=== PATIENT | male | born 1950 | race Caucasian/White ===

== ENCOUNTER 2020-07-25 13:15 | Inpatient (IN) | payer OTHER, MEDICARE ==
[~2020-07-25] VITALS: Ht 165.1 cm; Wt 79.4 kg
[2020-07-25 13:21] VITALS: BP_SYST 117
[2020-07-25 14:38] LABS: MEAN CORPUSCULAR HGB CONC 32 % (32-36); MEAN CORPUSCULAR VOLUME 65 fL (79.0-98.0); PLATELET COUNT (AUTO) 431 K/uL (130-430)
[2020-07-25 14:50] LABS: BASOPHILS # (AUTO) 0.1 K/uL (0.0-0.2); EOSINOPHILS # (AUTO) 0.4 K/uL (0.0-0.4); EOSINOPHILS % (AUTO) 4.2 % (0.0-4.0); HEMATOCRIT 39.6 % (36-54); HEMOGLOBIN 12.8 g/dL (14.0-18.0); LYMPHOCYTES # (AUTO) 1.6 K/uL (1.0-5.5); MEAN CORPUSCULAR HEMOGLOBIN 21 pg (27-31); MONOCYTES % (AUTO) 9.8 % (1.7-9.3); RED BLOOD CELL COUNT(AUTO) 6.09 MIL/uL (4.2-6.2); RED CELL DISTRIBUTION WIDTH 16.3 % (9.0-15.0); WHITE BLOOD COUNT (AUTO) 10.1 K/uL (4.8-10.8)
[2020-07-25 14:52] LABS: ANION GAP 9 (5-15); CHLORIDE 100 mmol/L (98-107); CREATININE 0.87 mg/dL (0.55-1.30); GLUCOSE 137 mg/dL (70-99); SODIUM SERUM 135 mmol/L (136-145); UREA NITROGEN, BLOOD 15 mg/dL (8-21)
[2020-07-25 14:56] LABS: PROTHROMBIN TIME 10.2 SECS (9.5-12.5)
[2020-07-25 14:58] LABS: ALANINE AMINOTRANSFERASE 16 U/L (12-78); ALBUMIN 3.3 g/dL (3.4-4.8); ASPARTATE AMINOTRANSFERASE 13 U/L (10-37); TOTAL BILIRUBIN 0.4 mg/dL (0.0-1.0)
[2020-07-25] MEDS ORDERED: *LOVENOX 1MG/KG Q12H/PHARMACY XX ONE (16:30)
[2020-07-25] MEDS ORDERED: METF-518 PO (16:50)
[2020-07-25] MEDS ORDERED: CAPT25TA3 PO (16:50)
[2020-07-25] MEDS ORDERED: CILO100T PO (16:50)
[2020-07-25] MEDS ORDERED: ALLO100T PO (16:50)
[2020-07-25] MEDS ORDERED: PRAV40TA PO (16:50)
[2020-07-25] MEDS ORDERED: BACL10TA PO (16:50)
[2020-07-25] MEDS ORDERED: NAPR-690 PO (16:50)
[2020-07-25] MEDS ORDERED: DESL5TAB41 PO (16:50)
[2020-07-25] MEDS ORDERED: ENOXAPARIN SODIUM 80 MG/0.8 ML SYRINGE SUBCUT ONE (17:00)
[2020-07-25] MEDS ORDERED: INSULIN REGULAR, HUMAN 100 UNITS/ML, 10 ML VIAL (humuLIN R) SUBCUT PRN (17:45)
[2020-07-25 18:20] VITALS: BP_SYST 160
[2020-07-25 19:00] VITALS: BP_SYST 165
[2020-07-25 20:00] VITALS: BP_SYST 165
[2020-07-25] MEDS ORDERED: TEMAZEPAM 7.5 MG CAPSULE PO PRN (22:00)
[2020-07-25] MEDS: traMADol HCL HCL 50 MG TABLET (ULTRAM) PO PRN (22:28)
[2020-07-26 00:09] VITALS: BP_SYST 156
[2020-07-26] MEDS: traMADol HCL HCL 50 MG TABLET (ULTRAM) PO PRN (07:51)
[2020-07-26 08:00] VITALS: BP_SYST 137
[2020-07-26 08:24] LABS: ANION GAP 11 (5-15); CALCIUM 8.6 mg/dL (8.4-11.0); CHLORIDE 100 mmol/L (98-107); CREATININE 0.72 mg/dL (0.55-1.30); GLUCOSE 103 mg/dL (70-99); POTASSIUM 3.7 mmol/L (3.5-5.1); SODIUM SERUM 137 mmol/L (136-145); UREA NITROGEN, BLOOD 13 mg/dL (8-21)
[2020-07-26 08:28] LABS: PROTHROMBIN TIME 10.2 SECS (9.5-12.5)
[2020-07-26 08:31] LABS: BASOPHILS # (AUTO) 0.1 K/uL (0.0-0.2); BASOPHILS % (AUTO) 1.3 % (0.0-2.0); EOSINOPHILS # (AUTO) 0.5 K/uL (0.0-0.4); EOSINOPHILS % (AUTO) 4.6 % (0.0-4.0); HEMATOCRIT 42.3 % (36-54); HEMOGLOBIN 13.3 g/dL (14.0-18.0); LYMPHOCYTES # (AUTO) 2.1 K/uL (1.0-5.5); LYMPHOCYTES % (AUTO) 18.8 % (20.5-51.5); MEAN CORPUSCULAR HEMOGLOBIN 21 pg (27-31); MEAN CORPUSCULAR HGB CONC 31 % (32-36); MEAN CORPUSCULAR VOLUME 65 fL (79.0-98.0); MONOCYTES % (AUTO) 8.5 % (1.7-9.3); NEUTROPHILS # (AUTO) 7.5 K/uL (1.8-7.7); NEUTROPHILS % (AUTO) 66.8 % (40.0-70.0); PLATELET COUNT (AUTO) 429 K/uL (130-430); RED BLOOD CELL COUNT(AUTO) 6.48 MIL/uL (4.2-6.2); RED CELL DISTRIBUTION WIDTH 16.2 % (9.0-15.0); WHITE BLOOD COUNT (AUTO) 11.3 K/uL (4.8-10.8)
[2020-07-26 08:41] LABS: ALANINE AMINOTRANSFERASE 22 U/L (12-78); ALBUMIN 3.2 g/dL (3.4-4.8); ASPARTATE AMINOTRANSFERASE 16 U/L (10-37); THYROID STIMULATING HORMONE 5.89 uIu/mL (0.36-3.74); TOTAL BILIRUBIN 0.5 mg/dL (0.0-1.0)
[2020-07-26] MEDS: ENOXAPARIN SODIUM 80 MG/0.8 ML SYRINGE SUBCUT SCH ×2 (08:50→20:17)
[2020-07-26] MEDS ORDERED: ENOXAPARIN SODIUM 80 MG/0.8 ML SYRINGE SUBCUT SCH (09:00)
[2020-07-26 09:45] LABS: CHOLESTEROL 107 mg/dL (<200); HDL CHOLESTEROL 52 mg/dL (>45); LDL CHOLESTEROL 47 mg/dL (<100); TRIGLYCERIDES 102 mg/dL (30-150)
[2020-07-26 11:50] VITALS: BP_SYST 145
[2020-07-26] MEDS ORDERED: BACLOFEN 10 MG TABLET PO ONE (15:15)
[2020-07-26] MEDS ORDERED: ALLOPURINOL 100 MG TABLET (ZYLOPRIM) PO ONE (15:15)
[2020-07-26] MEDS ORDERED: LORATADINE 10 MG TABLET PO ONE (15:15)
[2020-07-26] MEDS ORDERED: lisinopriL 5 MG TABLET PO ONE (15:15)
[2020-07-26] MEDS ORDERED: ATORVASTATIN 10 MG TABLET PO ONE (15:30)
[2020-07-26 16:55] VITALS: BP_SYST 145
[2020-07-26 20:00] VITALS: BP_SYST 142
[2020-07-26] MEDS: BACLOFEN 10 MG TABLET PO SCH (20:15)
[2020-07-26] MEDS: NAPROXEN 250 MG TABLET PO SCH (20:15)
[2020-07-26] MEDS: lisinopriL 5 MG TABLET PO SCH (20:16)
[2020-07-26] MEDS: CILOSTAZOL 50 MG TABLET (PLETAL) PO SCH (20:17)
[2020-07-26] MEDS: cefTRIAXone 1 GM in D5W 50 ML IV SCH (20:18)
[2020-07-26] MEDS: MORPHINE 2 MG/ML INJ. SYRINGE IVP PRN (21:18)
[2020-07-27] VITALS: BP_SYST 134
[2020-07-27 08:00] VITALS: BP_SYST 151
[2020-07-27] MEDS: LORATADINE 10 MG TABLET PO SCH (08:41)
[2020-07-27] MEDS: CILOSTAZOL 50 MG TABLET (PLETAL) PO SCH ×2 (08:41→20:08)
[2020-07-27] MEDS: lisinopriL 5 MG TABLET PO SCH ×2 (08:41→20:07)
[2020-07-27] MEDS: ATORVASTATIN 10 MG TABLET PO SCH (08:42)
[2020-07-27] MEDS: ALLOPURINOL 100 MG TABLET (ZYLOPRIM) PO SCH (08:42)
[2020-07-27] MEDS: BACLOFEN 10 MG TABLET PO SCH ×3 (08:42→20:07)
[2020-07-27] MEDS: ENOXAPARIN SODIUM 80 MG/0.8 ML SYRINGE SUBCUT SCH ×2 (08:43→20:09)
[2020-07-27] MEDS ORDERED: metFORMIN HCL 500 MG TABLET PO ONE (08:45)
[2020-07-27] MEDS: NAPROXEN 250 MG TABLET PO SCH ×2 (10:25→20:07)
[2020-07-27 12:00] VITALS: BP_SYST 145
[2020-07-27] MEDS: MORPHINE 2 MG/ML INJ. SYRINGE IVP PRN (16:23)
[2020-07-27 16:47] VITALS: BP_SYST 113
[2020-07-27] MEDS: metFORMIN HCL 500 MG TABLET PO SCH (18:10)
[2020-07-27 19:54] VITALS: BP_SYST 131
[2020-07-27] MEDS: cefTRIAXone 1 GM in D5W 50 ML IV SCH (20:13)
[2020-07-27 23:39] VITALS: BP_SYST 139
[2020-07-28] MEDS: metFORMIN HCL 500 MG TABLET PO SCH ×2 (09:45→17:34)
[2020-07-28] MEDS: ATORVASTATIN 10 MG TABLET PO SCH (09:45)
[2020-07-28] MEDS: LORATADINE 10 MG TABLET PO SCH (09:45)
[2020-07-28] MEDS: NAPROXEN 250 MG TABLET PO SCH ×2 (09:45→21:23)
[2020-07-28] MEDS: CILOSTAZOL 50 MG TABLET (PLETAL) PO SCH ×2 (09:45→21:22)
[2020-07-28] MEDS: lisinopriL 5 MG TABLET PO SCH ×2 (09:46→21:23)
[2020-07-28] MEDS: BACLOFEN 10 MG TABLET PO SCH ×3 (09:46→21:23)
[2020-07-28] MEDS: ALLOPURINOL 100 MG TABLET (ZYLOPRIM) PO SCH (09:47)
[2020-07-28] MEDS: ENOXAPARIN SODIUM 80 MG/0.8 ML SYRINGE SUBCUT SCH ×2 (09:51→21:27)
[2020-07-28 09:54] VITALS: BP_SYST 129
[2020-07-28 12:55] VITALS: BP_SYST 140
[2020-07-28 16:00] VITALS: BP_SYST 145
[2020-07-28 20:00] VITALS: BP_SYST 140
[2020-07-28] MEDS: cefTRIAXone 1 GM in D5W 50 ML IV SCH (21:22)
[2020-07-29 01:22] VITALS: BP_SYST 150
[2020-07-29 08:00] VITALS: BP_SYST 146
[2020-07-29] MEDS: metFORMIN HCL 500 MG TABLET PO SCH ×2 (09:04→17:10)
[2020-07-29] MEDS: NAPROXEN 250 MG TABLET PO SCH ×2 (09:04→22:01)
[2020-07-29] MEDS: BACLOFEN 10 MG TABLET PO SCH ×3 (09:04→22:02)
[2020-07-29] MEDS: LORATADINE 10 MG TABLET PO SCH (09:05)
[2020-07-29] MEDS: ALLOPURINOL 100 MG TABLET (ZYLOPRIM) PO SCH (09:05)
[2020-07-29] MEDS: lisinopriL 5 MG TABLET PO SCH ×2 (09:05→22:02)
[2020-07-29] MEDS: ATORVASTATIN 10 MG TABLET PO SCH (09:05)
[2020-07-29] MEDS: CILOSTAZOL 50 MG TABLET (PLETAL) PO SCH ×2 (09:06→22:02)
[2020-07-29] MEDS: ENOXAPARIN SODIUM 80 MG/0.8 ML SYRINGE SUBCUT SCH (09:07)
[2020-07-29] MEDS ORDERED: DIATR MEGLU/DIATRIZ SOD 30 ML SOLUTION PO ONE (10:22)
[2020-07-29] MEDS ORDERED: APIXABAN 2.5 MG TABLET PO ONE (10:30)
[2020-07-29 12:17] VITALS: BP_SYST 112
[2020-07-29 16:15] VITALS: BP_SYST 130
[2020-07-29 20:00] VITALS: BP_SYST 132
[2020-07-29] MEDS: APIXABAN 2.5 MG TABLET PO SCH (21:00)
[2020-07-29] MEDS: cefTRIAXone 1 GM in D5W 50 ML IV SCH (22:00)
[2020-07-30 00:27] VITALS: BP_SYST 142
[2020-07-30 06:38] LABS: BASOPHILS # (AUTO) 0.1 K/uL (0.0-0.2); BASOPHILS % (AUTO) 1.1 % (0.0-2.0); EOSINOPHILS # (AUTO) 0.5 K/uL (0.0-0.4); EOSINOPHILS % (AUTO) 4.8 % (0.0-4.0); HEMATOCRIT 41.8 % (36-54); HEMOGLOBIN 13.2 g/dL (14.0-18.0); LYMPHOCYTES % (AUTO) 19.7 % (20.5-51.5); MEAN CORPUSCULAR HEMOGLOBIN 21 pg (27-31); MEAN CORPUSCULAR HGB CONC 32 % (32-36); MEAN CORPUSCULAR VOLUME 65 fL (79.0-98.0); MONOCYTES # (AUTO) 0.9 K/uL (0.0-1.0); MONOCYTES % (AUTO) 8.7 % (1.7-9.3); NEUTROPHILS # (AUTO) 6.6 K/uL (1.8-7.7); NEUTROPHILS % (AUTO) 65.7 % (40.0-70.0); PLATELET COUNT (AUTO) 423 K/uL (130-430); RED BLOOD CELL COUNT(AUTO) 6.44 MIL/uL (4.2-6.2); WHITE BLOOD COUNT (AUTO) 10.1 K/uL (4.8-10.8)
[2020-07-30 07:27] LABS: ANION GAP 11 (5-15); CALCIUM 8.9 mg/dL (8.4-11.0); CHLORIDE 100 mmol/L (98-107); CREATININE 0.69 mg/dL (0.55-1.30); GLUCOSE 122 mg/dL (70-99); POTASSIUM 4.2 mmol/L (3.5-5.1); SODIUM SERUM 136 mmol/L (136-145); UREA NITROGEN, BLOOD 13 mg/dL (8-21)
[2020-07-30 08:00] VITALS: BP_SYST 149
[2020-07-30] MEDS: metFORMIN HCL 500 MG TABLET PO SCH ×2 (08:00→17:48)
[2020-07-30] MEDS: BACLOFEN 10 MG TABLET PO SCH ×2 (09:20→15:44)
[2020-07-30] MEDS: LORATADINE 10 MG TABLET PO SCH (09:20)
[2020-07-30] MEDS: ATORVASTATIN 10 MG TABLET PO SCH (09:20)
[2020-07-30] MEDS: ALLOPURINOL 100 MG TABLET (ZYLOPRIM) PO SCH (09:20)
[2020-07-30] MEDS: lisinopriL 5 MG TABLET PO SCH (09:21)
[2020-07-30] MEDS: NAPROXEN 250 MG TABLET PO SCH (09:23)
[2020-07-30] MEDS: CILOSTAZOL 50 MG TABLET (PLETAL) PO SCH (09:25)
[2020-07-30] MEDS: APIXABAN 2.5 MG TABLET PO SCH (09:26)
[2020-07-30 12:00] VITALS: BP_SYST 140
[2020-07-30] MEDS ORDERED: APIX2.5T PO (15:46)
[2020-07-30] MEDS ORDERED: APIX5TAB4 PO (15:49)
[2020-07-30 16:13] VITALS: BP_SYST 134
[2020-07-30 19:46] VITALS: BP_SYST 134
[2020-07-30 19:48] VITALS: BP_SYST 134
== END 2020-07-30 20:39 | disposition home health service (06) | DRG 300 ==
LOC: SED 13:15 → STU 17:04
PROVIDERS: ADMIT Internal Medicine; ATTEND Internal Medicine
DX: I82.A12 Acute embolism and thrombosis of left axillary vein (principal); L03.114 Cellulitis of left upper limb; I82.612 Acute embolism and thrombosis of superficial veins of left upper extremity; M17.11 Unilateral primary osteoarthritis, right knee; I10 Essential (primary) hypertension; E11.9 Type 2 diabetes mellitus without complications; Z79.899 Other long term (current) drug therapy; Z82.49 Family history of ischemic heart disease and other diseases of the circulatory system; Z83.3 Family history of diabetes mellitus; Z20.822 Contact with and (suspected) exposure to COVID-19
CPT/HCPCS: 36415; 71045; 71260-TC; 73564; 76376; 80048; 80053; 80061; 81403; 81407; 81479; 82962; 83880; 84443-TC; 84484; 85025; 85300; 85306; 85610-TC; 85730-TC; 86147; 87081; 93005; 93923; 93970; 96372; 97116-GP; 97530-GP; G0378; J0696; J1650; J1815; J2270; J7060; Q9964; Q9967

== ENCOUNTER 2021-06-10 09:44 | Inpatient (IN) | payer OTHER, MEDICARE, SELFPAY ==
[2021-06-10] VITALS (19 sets, daily range): BP systolic 41–160
[~2021-06-10] VITALS: Ht 165.1 cm; Wt 64.6 kg
[~2021-06-10 09:44] MED LIST: ALLO100T PO; APIX2.5T PO; BACL10TA PO; CAPT25TA3 PO; CILO100T PO; DESL5TAB41 PO; METF-518 PO; NAPR-690 PO; PRAV40TA PO
--- NOTE | 2021-06-10 09:44 | NUR ---
Pt triaged and placed in room 2 for evaluation. Report given to Oahn JC to assume care of patient.
[2021-06-10] MEDS ORDERED: ETOMIDATE 20 MG/ 10 ML VIAL (AMIDATE) IVP ONE ×2 (09:45→10:15)
[2021-06-10] MEDS ORDERED: VECURONIUM BROMIDE 10 MG/VIAL (NORCURON) IVP ONE ×2 (09:45→10:15)
--- NOTE | 2021-06-10 09:45 | NUR ---
Pt BIBA re SOB, 50's saturation on room air at home. Pt was seen at [facility] yesterday and newly diagnosed with CHF. Arrived on Bipap mask with sats only in 60's. NTG in field was minimally effective. Pt awake, alert and oriented x 3. Able to speak in short sentences. Awaiting MD lópez. Addendum: 06/10/21 at 1006 by [email or web address] *RT called to bedside immediately upon pt arrival re probable intubation
--- NOTE | 2021-06-10 09:50 | NUR ---
DR NEGRETE EXAMINING PATIENT.
[2021-06-10] MEDS ORDERED: fentaNYL CITRATE/PF 100 MCG/2 ML AMP IVP ONE (10:15)
[2021-06-10] MEDS ORDERED: PROPOFOL DRIP 100 ML IV ONE ×2 (10:15→12:26)
[2021-06-10 10:27] LABS: BASOPHILS # (AUTO) 0.1 K/uL (0.0-0.2); BASOPHILS % (AUTO) 0.7 % (0.0-2.0); EOSINOPHILS # (AUTO) 0.1 K/uL (0.0-0.4); EOSINOPHILS % (AUTO) 0.5 % (0.0-4.0); HEMOGLOBIN 11.2 g/dL (14.0-18.0); LYMPHOCYTES # (AUTO) 2.6 K/uL (1.0-5.5); MEAN CORPUSCULAR HEMOGLOBIN 21 pg (27-31); MEAN CORPUSCULAR HGB CONC 31 % (32-36); MEAN CORPUSCULAR VOLUME 68 fL (79.0-98.0); MONOCYTES # (AUTO) 0.4 K/uL (0.0-1.0); MONOCYTES % (AUTO) 2.1 % (1.7-9.3); NEUTROPHILS % (AUTO) 81.7 % (40.0-70.0); PLATELET COUNT (AUTO) 450 K/uL (130-430); RED BLOOD CELL COUNT(AUTO) 5.32 MIL/uL (4.2-6.2); RED CELL DISTRIBUTION WIDTH 21.1 % (9.0-15.0); WHITE BLOOD COUNT (AUTO) 17.1 K/uL (4.8-10.8)
--- NOTE | 2021-06-10 10:30 | NUR ---
DR NEGRETE INTUBATED PT USING ET TUBE SIZE 7.5, R.T. AT BEDSIDE BAGGING PT, WHILE VENT MACHINE BEING SET UP.
--- NOTE | 2021-06-10 10:40 | NUR ---
RIGHT JUGULAR CENTRAL LINE INSERTED BY DR NEGRETE. BIOPATCH TO SITE IN PLACED, TRANSPARENT DRESSING TO COVER.
[2021-06-10 10:50] LABS: ANION GAP 14 (5-15); CALCIUM 9.4 mg/dL (8.4-11.0); CHLORIDE 94 mmol/L (98-107); CREATININE 1.04 mg/dL (0.55-1.30); GLUCOSE 169 mg/dL (70-99); POTASSIUM 5.1 mmol/L (3.5-5.1); PROTHROMBIN TIME 10.8 SECS (9.5-12.5); SODIUM SERUM 128 mmol/L (136-145); UREA NITROGEN, BLOOD 24 mg/dL (8-21)
[2021-06-10 10:59] LABS: ALANINE AMINOTRANSFERASE 23 U/L (12-78); ALBUMIN 2.2 g/dL (3.4-4.8); ASPARTATE AMINOTRANSFERASE 29 U/L (10-37); TOTAL BILIRUBIN 0.6 mg/dL (0.0-1.0)
--- NOTE | 2021-06-10 11:15 | NUR ---
CHEST XRAY ORDERED AND CARRIED OUT.
[2021-06-10] MEDS ORDERED: PIPERACILLIN/TAZO 3.375 GM in NS 50 ML IV ONE (11:45)
[2021-06-10] MEDS ORDERED: VANCOMYCIN HCL 1,000 MG in NS 250 ML IV ONE (11:45)
[2021-06-10] MEDS ORDERED: PIPERACILLIN/TAZOBACTAM 3.375 GM/VIAL (ZOSYN) IV ONE (12:08)
--- NOTE | 2021-06-10 12:28 | NUR ---
CONSULT CALLED FOR DR CHANCE AND DR OROSCO SPOKE WITH ACE [phone]
[2021-06-10] MEDS ORDERED: IPRATROPIUM/ALBUTEROL SULFATE 3 ML AMPUL.NEB (DUONEB) INH PRN (13:15)
[2021-06-10] MEDS ORDERED: IPRATROPIUM/ALBUTEROL SULFATE 3 ML AMPUL.NEB (DUONEB) INH SCH (13:15)
--- NOTE | 2021-06-10 13:50 | NUR ---
Patient transported to ICU rm 127B on hospital bed with RT and WEB PAGE DEVELOPER Pam. Hugo (primary RN) to take chart to unit.
--- NOTE | 2021-06-10 13:58 | NUR ---
Transferred care to BABITA Prince. Moved pt to ICU rm 127-B.
[2021-06-10] MEDS ORDERED: NOREPINEPHRINE 4 MG/4 ML VIAL IV ONE (14:57)
[2021-06-10] MEDS ORDERED: NOREPINEPHRINE BITARTRATE 4 MG in D5W 246 ML IV PRN (15:00)
[2021-06-10] MEDS ORDERED: PANTOPRAZOLE SODIUM 40 MG/VIAL (PROTONIX) IVP ONE (16:00)
[2021-06-10] MEDS ORDERED: ENOXAPARIN SODIUM 40 MG/0.4 ML SYRINGE SUBCUT ONE (16:00)
[2021-06-10] MEDS ORDERED: FUROSEMIDE 40 MG/4 ML VIAL IVP ONE (16:00)
[2021-06-10] MEDS ORDERED: CHOLECALCIFEROL (VITAMIN D-3) 400 UNIT TABLET NG ONE (16:00)
[2021-06-10] MEDS ORDERED: ASCORBIC ACID 500 MG TABLET NG ONE (16:00)
[2021-06-10] MEDS ORDERED: NACL 0.9% 1,000 ML IV SCH (18:15)
[2021-06-10] MEDS: PIPERACILLIN/TAZO 3.375 GM in NS 50 ML IV SCH (18:24)
[2021-06-10] MEDS: METHYLPREDNISOLONE SOD SUCC 40 MG/ML VIAL IVP SCH ×2 (18:26→22:00)
[2021-06-10] MEDS: NACL 0.9% 1,000 ML IV SCH (19:00)
[2021-06-10] MEDS ORDERED: GUAI120L56 PO (19:20)
[2021-06-10] MEDS ORDERED: CARV12.548 PO (19:29)
[2021-06-10] MEDS ORDERED: PRED5TAB PO (19:58)
[2021-06-10] MEDS ORDERED: FOLI-43 PO (19:58)
[2021-06-10] MEDS ORDERED: FER300L PO (19:58)
[2021-06-10] MEDS ORDERED: XALEYE OP (19:58)
[2021-06-10] MEDS ORDERED: PRAV40TA63 PO (19:58)
[2021-06-10] MEDS ORDERED: DORZ10DR10 EACH EYE (19:58)
[2021-06-10] MEDS ORDERED: ASPI-1155 PO (19:58)
[2021-06-10] MEDS ORDERED: APIX5TAB4 PO (19:58)
[2021-06-10] MEDS ORDERED: FURO-150 PO (19:58)
[2021-06-10] MEDS ORDERED: SPIR25TA6 PO (19:58)
[2021-06-10] MEDS ORDERED: SACU1TAB7 PO (19:58)
[2021-06-10] MEDS ORDERED: DAPA10TA PO (19:58)
[2021-06-10] MEDS ORDERED: FAMO20TA8 PO (19:58)
[2021-06-10] MEDS: ALBUMIN HUMAN 25% 100 ML IV SCH (21:45)
--- NOTE | 2021-06-10 22:06 | NUR ---
CONSULTATION PAGED/CALLED Reason for Consultation: COVID Person Who was Notified: GENI Consulting Physician: JENNIFER Music Professor Specialty: Ordering Physician: CELESTE
[2021-06-11] VITALS (36 sets, daily range): BP systolic 68–166
[2021-06-11] MEDS: ALBUMIN HUMAN 25% 100 ML IV SCH (01:45)
[2021-06-11] MEDS: PIPERACILLIN/TAZO 3.375 GM in NS 50 ML IV SCH ×5 (04:59→18:01)
[2021-06-11] MEDS: METHYLPREDNISOLONE SOD SUCC 40 MG/ML VIAL IVP SCH ×3 (05:00→21:00)
--- NOTE | 2021-06-11 07:30 | NUR ---
Recd pt sedated on diprivan gtt at 25mcg/kg/min, oral ETT to vent SC 20, tv 450, 75% fio2, +5, with sats 97%. SR at 61. OGT clamped for meds, F/c with yellow clear urine. AM assessment done and charted. Attempted to wean off levophed because BP was 166/82, down to 0.2mcg/kg/min, now BP 114/66. Will continue to monitor pt.
[2021-06-11 08:06] LABS: BASOPHILS % (AUTO) 0.2 % (0.0-2.0); HEMATOCRIT 31.3 % (36-54); HEMOGLOBIN 9.8 g/dL (14.0-18.0); LYMPHOCYTES # (AUTO) 1.8 K/uL (1.0-5.5); LYMPHOCYTES % (AUTO) 10.7 % (20.5-51.5); MEAN CORPUSCULAR HEMOGLOBIN 21 pg (27-31); MEAN CORPUSCULAR HGB CONC 31 % (32-36); MEAN CORPUSCULAR VOLUME 68 fL (79.0-98.0); MONOCYTES # (AUTO) 0.6 K/uL (0.0-1.0); MONOCYTES % (AUTO) 3.7 % (1.7-9.3); NEUTROPHILS # (AUTO) 14.3 K/uL (1.8-7.7); NEUTROPHILS % (AUTO) 85.4 % (40.0-70.0); PLATELET COUNT (AUTO) 387 K/uL (130-430); RED BLOOD CELL COUNT(AUTO) 4.64 MIL/uL (4.2-6.2); RED CELL DISTRIBUTION WIDTH 20.5 % (9.0-15.0); WHITE BLOOD COUNT (AUTO) 16.8 K/uL (4.8-10.8)
--- NOTE | 2021-06-11 08:23 | NUR ---
Nutrition Update Brayan Scale 9 noted. Pt admitted for CHF, influenza, COVID. Diet: N/A BMI: 23.5 kg/m2 RD to follow per nutrition care standards.
[2021-06-11] MEDS ORDERED: CHOLECALCIFEROL (VITAMIN D-3) 400 UNIT TABLET NG SCH (09:00)
[2021-06-11] MEDS ORDERED: ASCORBIC ACID 500 MG TABLET NG SCH (09:00)
[2021-06-11] MEDS: FUROSEMIDE 40 MG/4 ML VIAL IVP SCH (09:21)
[2021-06-11] MEDS: NACL 0.9% 1,000 ML IV SCH ×2 (09:21→21:00)
[2021-06-11] MEDS: PANTOPRAZOLE SODIUM 40 MG/VIAL (PROTONIX) IVP SCH (09:21)
[2021-06-11] MEDS: ASCORBIC ACID 500 MG TABLET PO SCH (09:22)
[2021-06-11] MEDS: CHOLECALCIFEROL (VITAMIN D3) 2,000 UNIT TABLET PO SCH (09:22)
[2021-06-11] MEDS: ENOXAPARIN SODIUM 40 MG/0.4 ML SYRINGE SUBCUT SCH (09:23)
--- NOTE | 2021-06-11 09:34 | NUR ---
Notified Dr Lemus regarding ABG results from this morning, obtained order to decrease Fi02, see order. Will continue to monitor pt closely.
[2021-06-11] MEDS: SACUBITRIL/VALSARTAN 24 MG-26 MG 1 TABLET PO SCH ×2 (09:45→21:00)
[2021-06-11 10:34] LABS: CHLORIDE 98 mmol/L (98-107); POTASSIUM 4.4 mmol/L (3.5-5.1); SODIUM SERUM 133 mmol/L (136-145)
[2021-06-11 10:35] LABS: ALANINE AMINOTRANSFERASE 23 U/L (12-78); ALBUMIN 1.9 g/dL (3.4-4.8); ANION GAP 15 (5-15); ASPARTATE AMINOTRANSFERASE 23 U/L (10-37); CALCIUM 8.5 mg/dL (8.4-11.0); CREATININE 1.28 mg/dL (0.55-1.30); GLUCOSE 216 mg/dL (70-99); TOTAL BILIRUBIN 0.5 mg/dL (0.0-1.0); UREA NITROGEN, BLOOD 33 mg/dL (8-21)
[2021-06-11 10:36] LABS: THYROID STIMULATING HORMONE 1.35 uIu/mL (0.36-3.74)
[2021-06-11] MEDS: ALBUTEROL MDI INHALATION 8 GM INH INH SCH ×3 (10:42→20:00)
--- NOTE | 2021-06-11 10:49 | NUR ---
BENEDICTO GREEN AT [phone] SPOKE WITH GUCCI.
--- NOTE | 2021-06-11 10:55 | NUR ---
Notified DR Mendoza, troponin 105, no new orders.
[2021-06-11 11:16] LABS: C-REACTIVE PROTEIN QUANT 26.2 mg/dL (0-0.5); CHOLESTEROL 97 mg/dL (<200); HDL CHOLESTEROL 12 mg/dL (>45); LDL CHOLESTEROL 46 mg/dL (<100); TRIGLYCERIDES 198 mg/dL (30-150)
[2021-06-11] MEDS: PROPOFOL DRIP 100 ML IV PRN ×2 (13:36→17:59)
--- NOTE | 2021-06-11 14:45 | NUR ---
Dietitian Recommendations * Consider initiation of EN support within 1-2 days * Vital AF 1.2 at 40 ml/hr; if bolus feedin Q6h (960 kcal/day), Free Water Flush: per physician d/t CHF via OGT Provides (w/ current propofol infusion rate): 1495 kcal/day, 72 gm protein/day, and 779 ml free water/day Meets: 94% of estimated caloric needs and 75% of lower end of estimated nutritional needs LP, RD Please refer to Nutrition Assessment for details. Addendum: 06/11/21 at [address] Amended: Links added.
--- NOTE | 2021-06-11 14:55 | NUR ---
Nutrition Note RD called and spoke w/ PAPER SEALER (Elaine Otto) via phone call and relayed TF rec. She agreed w/ RD; RD to implement order via TO/RB per PAPER SEALER.
--- NOTE | 2021-06-11 15:26 | NUR ---
Started Vital AF 1.2 tube feeding per order.
[2021-06-12] VITALS (27 sets, daily range): BP systolic 89–148
[2021-06-12] MEDS: ALBUTEROL MDI INHALATION 8 GM INH INH SCH ×5 (00:08→23:59)
[2021-06-12] MEDS: PROPOFOL DRIP 100 ML IV PRN ×4 (02:10→16:53)
[2021-06-12] MEDS: PIPERACILLIN/TAZO 3.375 GM in NS 50 ML IV SCH ×5 (05:49→16:54)
[2021-06-12 06:37] LABS: BASOPHILS % (AUTO) 0.1 % (0.0-2.0); HEMATOCRIT 27.9 % (36-54); HEMOGLOBIN 8.7 g/dL (14.0-18.0); MEAN CORPUSCULAR HEMOGLOBIN 21 pg (27-31); MEAN CORPUSCULAR HGB CONC 31 % (32-36); MEAN CORPUSCULAR VOLUME 67 fL (79.0-98.0); MONOCYTES # (AUTO) 0.9 K/uL (0.0-1.0); MONOCYTES % (AUTO) 6.2 % (1.7-9.3); NEUTROPHILS # (AUTO) 11.2 K/uL (1.8-7.7); NEUTROPHILS % (AUTO) 79.7 % (40.0-70.0); PLATELET COUNT (AUTO) 364 K/uL (130-430); RED BLOOD CELL COUNT(AUTO) 4.15 MIL/uL (4.2-6.2); WHITE BLOOD COUNT (AUTO) 14.1 K/uL (4.8-10.8)
[2021-06-12 06:46] LABS: ALANINE AMINOTRANSFERASE 16 U/L (12-78); ALBUMIN 1.6 g/dL (3.4-4.8); ANION GAP 12 (5-15); ASPARTATE AMINOTRANSFERASE 16 U/L (10-37); CHLORIDE 105 mmol/L (98-107); CREATININE 0.79 mg/dL (0.55-1.30); GLUCOSE 161 mg/dL (70-99); POTASSIUM 4.1 mmol/L (3.5-5.1); SODIUM SERUM 138 mmol/L (136-145); TOTAL BILIRUBIN 0.2 mg/dL (0.0-1.0); UREA NITROGEN, BLOOD 27 mg/dL (8-21)
[2021-06-12] MEDS: METHYLPREDNISOLONE SOD SUCC 40 MG/ML VIAL IVP SCH ×3 (06:46→22:00)
[2021-06-12] MEDS: SACUBITRIL/VALSARTAN 24 MG-26 MG 1 TABLET PO SCH ×2 (09:00→22:00)
[2021-06-12 09:30] LABS: RED CELL DISTRIBUTION WIDTH 20.9 % (9.0-15.0)
[2021-06-12] MEDS: PANTOPRAZOLE SODIUM 40 MG/VIAL (PROTONIX) IVP SCH (09:39)
[2021-06-12] MEDS: FUROSEMIDE 40 MG/4 ML VIAL IVP SCH (09:39)
[2021-06-12] MEDS: CHOLECALCIFEROL (VITAMIN D3) 2,000 UNIT TABLET PO SCH (09:43)
[2021-06-12] MEDS: ASCORBIC ACID 500 MG TABLET PO SCH (09:43)
[2021-06-12] MEDS: ENOXAPARIN SODIUM 40 MG/0.4 ML SYRINGE SUBCUT SCH (09:44)
[2021-06-12] MEDS ORDERED: TOCILIZUMAB 600 MG in NS 100 ML IV ONE (10:30)
--- NOTE | 2021-06-12 12:20 | NUR ---
RT NOTES 1200 Titrated fio2 to 40%, will continue to monitor pt. pt saturating 93%. BABITA brandon.
[2021-06-12] MEDS: NACL 0.9% 1,000 ML IV SCH (16:53)
[2021-06-13] VITALS (31 sets, daily range): BP systolic 88–151
[2021-06-13] MEDS: PROPOFOL DRIP 100 ML IV PRN ×4 (00:09→16:56)
[2021-06-13 04:52] LABS: BASOPHILS % (AUTO) 0.2 % (0.0-2.0); HEMATOCRIT 28.3 % (36-54); HEMOGLOBIN 8.9 g/dL (14.0-18.0); LYMPHOCYTES # (AUTO) 1.2 K/uL (1.0-5.5); LYMPHOCYTES % (AUTO) 16.1 % (20.5-51.5); MEAN CORPUSCULAR HEMOGLOBIN 21 pg (27-31); MEAN CORPUSCULAR HGB CONC 31 % (32-36); MEAN CORPUSCULAR VOLUME 67 fL (79.0-98.0); MONOCYTES # (AUTO) 0.3 K/uL (0.0-1.0); MONOCYTES % (AUTO) 4.5 % (1.7-9.3); NEUTROPHILS # (AUTO) 5.9 K/uL (1.8-7.7); NEUTROPHILS % (AUTO) 79.2 % (40.0-70.0); PLATELET COUNT (AUTO) 357 K/uL (130-430); RED BLOOD CELL COUNT(AUTO) 4.22 MIL/uL (4.2-6.2); RED CELL DISTRIBUTION WIDTH 20.8 % (9.0-15.0); WHITE BLOOD COUNT (AUTO) 7.4 K/uL (4.8-10.8)
[2021-06-13 05:25] LABS: ANION GAP 11 (5-15); CALCIUM 7.8 mg/dL (8.4-11.0); CHLORIDE 110 mmol/L (98-107); CREATININE 0.56 mg/dL (0.55-1.30); GLUCOSE 163 mg/dL (70-99); POTASSIUM 4.3 mmol/L (3.5-5.1); SODIUM SERUM 143 mmol/L (136-145); UREA NITROGEN, BLOOD 26 mg/dL (8-21)
[2021-06-13] MEDS: METHYLPREDNISOLONE SOD SUCC 40 MG/ML VIAL IVP SCH ×3 (07:02→21:24)
[2021-06-13] MEDS: PIPERACILLIN/TAZO 3.375 GM in NS 50 ML IV SCH ×5 (07:03→16:54)
[2021-06-13] MEDS: ALBUTEROL MDI INHALATION 8 GM INH INH SCH ×2 (07:04→19:50)
--- NOTE | 2021-06-13 07:18 | NUR ---
Assumed pt care bedside report received from Lliliam JC met pt sedated on Propofol @45mcg, withdraws extremities to pain, facial grimacing but eyes closed, ETT to ventilator, AC/VC RATE 20 TV450, FIO2 40% PEEP5, oral care done and suction thick de león secretions. Vital signs stable still on Levophed @0.25mcg/kg/min, restraints on for safety, spring to gravity, OGT vitaL AF 1.2@50ml/hr tolerating well will continue to monitor and treat as per care plan.
--- NOTE | 2021-06-13 08:05 | NUR ---
G DONE. RESULTS REPORTED TO BABITA LUNDY.
--- NOTE | 2021-06-13 08:15 | NUR ---
ABG report received from Joycelyn PH 7.39 PCO 32, PO2 83.7, HCO3 19.5 BE -5.1 will report to ice guard inspector during rounds. PT IS COVID POSITIVE. on vent settings 20/ TV 450/ fio2 40%/peep5
[2021-06-13] MEDS: SACUBITRIL/VALSARTAN 24 MG-26 MG 1 TABLET PO SCH ×2 (09:00→21:24)
--- NOTE | 2021-06-13 09:09 | NUR ---
Pt's Dameon called, updates given by this RN on pt's condition vent settings asked if pt is doing better, unable to answer this question as this is the first time taking care of the pt. Encouraged to verbalize her concerns also she asked for the MD to call her for updates, will let MD know during rounds and also will let family know if there is any changes.
[2021-06-13] MEDS: ALBUMIN HUMAN 25% 50 ML IV SCH ×3 (09:49→21:24)
[2021-06-13] MEDS: PANTOPRAZOLE SODIUM 40 MG/VIAL (PROTONIX) IVP SCH (09:52)
[2021-06-13] MEDS: FUROSEMIDE 40 MG/4 ML VIAL IVP SCH (09:52)
[2021-06-13] MEDS: ASCORBIC ACID 500 MG TABLET PO SCH (09:53)
[2021-06-13] MEDS: CHOLECALCIFEROL (VITAMIN D3) 2,000 UNIT TABLET PO SCH (09:53)
[2021-06-13] MEDS: OSELTAMIVIR PHOSPHATE 75 MG CAPSULE PO SCH ×2 (09:53→21:24)
[2021-06-13] MEDS: ENOXAPARIN SODIUM 40 MG/0.4 ML SYRINGE SUBCUT SCH (09:54)
--- NOTE | 2021-06-13 12:16 | NUR ---
Dr Gómez was here as at this time updates on pt's condition notified MD that pt's called for updates, MD said he will call family he asked for face sheet with family phone number provided by this RN
[2021-06-13] MEDS: NACL 0.9% 1,000 ML IV SCH (12:49)
--- NOTE | 2021-06-13 14:30 | NUR ---
Pt's family visit via window support given also repositioned pt so they can see him
--- NOTE | 2021-06-13 18:15 | NUR ---
Complete bed bath with CHG, oral care and pt repositioned tolerated well.
--- NOTE | 2021-06-13 19:20 | NUR ---
Change of shift report to Mian JC and updates at bedside, ongoing drips, Propofol, vitals signs stable no sign of distress and no changes in care plan and condition.
[2021-06-14] VITALS (35 sets, daily range): BP systolic 110–171
[2021-06-14] MEDS: ALBUTEROL MDI INHALATION 8 GM INH INH SCH ×4 (00:18→19:42)
[2021-06-14] MEDS: PIPERACILLIN/TAZO 3.375 GM in NS 50 ML IV SCH ×4 (00:22→17:49)
[2021-06-14] MEDS: LORazepam 2 MG/ML VIAL IVP PRN ×3 (02:06→23:55)
[2021-06-14 06:13] LABS: BASOPHILS % (AUTO) 0.4 % (0.0-2.0); HEMATOCRIT 26.3 % (36-54); HEMOGLOBIN 8.3 g/dL (14.0-18.0); LYMPHOCYTES # (AUTO) 1.7 K/uL (1.0-5.5); LYMPHOCYTES % (AUTO) 20.8 % (20.5-51.5); MEAN CORPUSCULAR HEMOGLOBIN 21 pg (27-31); MEAN CORPUSCULAR HGB CONC 32 % (32-36); MEAN CORPUSCULAR VOLUME 67 fL (79.0-98.0); MONOCYTES # (AUTO) 0.6 K/uL (0.0-1.0); MONOCYTES % (AUTO) 6.8 % (1.7-9.3); PLATELET COUNT (AUTO) 340 K/uL (130-430); RED BLOOD CELL COUNT(AUTO) 3.91 MIL/uL (4.2-6.2); RED CELL DISTRIBUTION WIDTH 20.5 % (9.0-15.0); WHITE BLOOD COUNT (AUTO) 8.4 K/uL (4.8-10.8)
[2021-06-14 06:39] LABS: ALANINE AMINOTRANSFERASE 20 U/L (12-78); ALBUMIN 2.2 g/dL (3.4-4.8); ANION GAP 11 (5-15); ASPARTATE AMINOTRANSFERASE 16 U/L (10-37); CHLORIDE 111 mmol/L (98-107); GLUCOSE 218 mg/dL (70-99); PHOSPHORUS 2.1 mg/dL (2.7-4.5); POTASSIUM 3.7 mmol/L (3.5-5.1); SODIUM SERUM 145 mmol/L (136-145); TOTAL BILIRUBIN 0.2 mg/dL (0.0-1.0); UREA NITROGEN, BLOOD 26 mg/dL (8-21)
--- NOTE | 2021-06-14 07:20 | NUR ---
Dr Mendoza's rounds at the bedside, aware pt's occasional bradycardia no new order received blood pressure stable and WNL.
--- NOTE | 2021-06-14 07:20 | NUR ---
Assumed pt care report received from Mian JC met alert still on Propfol drip @20mcg, follows command moves all extremities vitals signs stable afebrile, ETT to vent tolerating well, continuous support/ reorientation at the bedside to alleviates anxiety, oral care, suction via ETT, restraints released skin assessed no breakdown noted, ROM to all extremities, ongoing hydration with tube feeding residual <10,Vital AF 1.2@40ml/hr, placement checked, verified by auscultation, NS 0.9% @50ml/hr and pt repositioned for comfort.
--- NOTE | 2021-06-14 08:50 | NUR ---
Pt's called updates on pt's condition and support as at this time pt still intubated but on SIMV mode awake able to follow command.
[2021-06-14] MEDS: SACUBITRIL/VALSARTAN 24 MG-26 MG 1 TABLET PO SCH ×2 (09:29→21:55)
--- NOTE | 2021-06-14 09:30 | NUR ---
PAGED FOR ORDERS SPOKE TO: EXCHANGE
[2021-06-14] MEDS: METHYLPREDNISOLONE SOD SUCC 40 MG/ML VIAL IVP SCH ×3 (09:33→21:57)
[2021-06-14] MEDS: FUROSEMIDE 40 MG/4 ML VIAL IVP SCH (09:38)
[2021-06-14] MEDS: PROPOFOL DRIP 100 ML IV PRN ×2 (09:40→13:36)
[2021-06-14] MEDS: PANTOPRAZOLE SODIUM 40 MG/VIAL (PROTONIX) IVP SCH (09:41)
[2021-06-14] MEDS: ENOXAPARIN SODIUM 40 MG/0.4 ML SYRINGE SUBCUT SCH (09:41)
[2021-06-14] MEDS: ASCORBIC ACID 500 MG TABLET PO SCH (09:42)
[2021-06-14] MEDS: CHOLECALCIFEROL (VITAMIN D3) 2,000 UNIT TABLET PO SCH (09:42)
[2021-06-14] MEDS: OSELTAMIVIR PHOSPHATE 75 MG CAPSULE PO SCH ×2 (09:42→21:56)
[2021-06-14] MEDS: ACETAMINOPHEN 500 MG TABLET NG PRN (09:43)
[2021-06-14] MEDS: NACL 0.9% 1,000 ML IV SCH (09:46)
--- NOTE | 2021-06-14 09:50 | NUR ---
Pt vent settings switched to SIMV rate 16, fio2 40%, PS14 peep 6 and TV 450, Propofol decreased and ABG done reported to Dr OROSCO PH 7.430, PCO2 33.9, PO2 64.2, HCO3 22 and BE-1.8. Orders received to change rate to 14 and PS 12 done by Nani IGLESIAS.
--- NOTE | 2021-06-14 12:30 | NUR ---
PT became restless,Ativan given not effective, RR >40 very anxious O2 sat 85%, ventilator settings switched back to A/C mode and increased sedation for pt's comfort.
--- NOTE | 2021-06-14 14:50 | NUR ---
Complete CHG bed bath and linen tolerated well large BM. Oral / spring care and suctioned via ETT. Addendum: 06/14/21 at 1920 by [facility] Ankush lsw Skin checked intact no break down noted repositioning q2 hr.
--- NOTE | 2021-06-14 18:10 | NUR ---
Dr OROSCO rounds at the bedside, mentioned to MD that pt tolerated SIMV for about 3hours only, MD said to repeat same process in AM tomorrow and PRECEDEX order received for pt's comfort/tolerance.
--- NOTE | 2021-06-14 19:20 | NUR ---
Change of shift report updates on pt's condition ongoing treatments as at this time no changes on care plan. Tolerating well all care vitals signs stable and no sign of distress. Emphasis that Dr Lemus want to repeat SIMV in AM and Precedex gtt for pt's tolerance
--- NOTE | 2021-06-14 19:30 | NUR ---
Opening Note Received report from dayshift nurse. Patient is resting in bed. VSS. No signs of distress. Will monitor throughout night
[2021-06-15] VITALS (43 sets, daily range): BP systolic 127–209
[2021-06-15] MEDS: ALBUTEROL MDI INHALATION 8 GM INH INH SCH ×5 (00:05→23:24)
[2021-06-15] MEDS: PIPERACILLIN/TAZO 3.375 GM in NS 50 ML IV SCH ×5 (00:14→23:52)
[2021-06-15] MEDS: PROPOFOL DRIP 100 ML IV PRN ×3 (00:14→13:26)
--- NOTE | 2021-06-15 01:47 | NUR ---
I PAGED DR CHANCE I SPOKE WITH ALLISON DAVIES
--- NOTE | 2021-06-15 01:47 | NUR ---
Spoke with Dr. Mendoza. Informed him that the patients heart rate is dropping into the low 40s. Received orders for dobutamine at 5mcg/kg/minute. Will monitor the patient.
[2021-06-15] MEDS: LORazepam 2 MG/ML VIAL IVP PRN (02:19)
--- NOTE | 2021-06-15 04:18 | NUR ---
Spoke with Dr. Mendoza and informed him that the patient's blood prssure was gradually increading. Recieved new orders from to lower the dobutamine to 1mcg/kg/minute.
--- NOTE | 2021-06-15 04:18 | NUR ---
PAGED DR. CHANCE A SECOND TIME I SPOKE WITH ALLISON DAVIES
[2021-06-15] MEDS: METHYLPREDNISOLONE SOD SUCC 40 MG/ML VIAL IVP SCH ×3 (05:28→23:52)
[2021-06-15 07:06] LABS: BASOPHILS # (AUTO) 0.1 K/uL (0.0-0.2); HEMATOCRIT 30.6 % (36-54); HEMOGLOBIN 9.7 g/dL (14.0-18.0); LYMPHOCYTES # (AUTO) 2.7 K/uL (1.0-5.5); MEAN CORPUSCULAR HEMOGLOBIN 22 pg (27-31); MEAN CORPUSCULAR HGB CONC 32 % (32-36); MEAN CORPUSCULAR VOLUME 68 fL (79.0-98.0); MONOCYTES % (AUTO) 7.3 % (1.7-9.3); NEUTROPHILS # (AUTO) 9.6 K/uL (1.8-7.7); NEUTROPHILS % (AUTO) 71.7 % (40.0-70.0); PLATELET COUNT (AUTO) 408 K/uL (130-430); RED BLOOD CELL COUNT(AUTO) 4.51 MIL/uL (4.2-6.2)
[2021-06-15 07:19] LABS: ALANINE AMINOTRANSFERASE 11 U/L (12-78); ALBUMIN 2.4 g/dL (3.4-4.8); ANION GAP 11 (5-15); ASPARTATE AMINOTRANSFERASE 15 U/L (10-37); CALCIUM 8.2 mg/dL (8.4-11.0); CHLORIDE 111 mmol/L (98-107); GLUCOSE 183 mg/dL (70-99); POTASSIUM 3.2 mmol/L (3.5-5.1); SODIUM SERUM 147 mmol/L (136-145); TOTAL BILIRUBIN 0.3 mg/dL (0.0-1.0); UREA NITROGEN, BLOOD 26 mg/dL (8-21)
[2021-06-15 07:28] LABS: C-REACTIVE PROTEIN QUANT 3.3 mg/dL (0-0.5)
--- NOTE | 2021-06-15 07:30 | NUR ---
RT NOTES vent settings to SIMV [address] order. Will monitor pt. Rn notified
[2021-06-15] MEDS: DEXMEDETOMIDINE HCL 400 MCG in NS 96 ML IV PRN (07:52)
[2021-06-15] MEDS: NACL 0.9% 1,000 ML IV SCH (08:00)
[2021-06-15] MEDS ORDERED: POTASSIUM CHLORIDE 20 MEQ/PKT PACKET PO ONE (08:15)
[2021-06-15 08:18] LABS: WHITE BLOOD COUNT (AUTO) 13.4 K/uL (4.8-10.8)
[2021-06-15] MEDS: ENOXAPARIN SODIUM 40 MG/0.4 ML SYRINGE SUBCUT SCH (09:30)
[2021-06-15] MEDS: SACUBITRIL/VALSARTAN 24 MG-26 MG 1 TABLET PO SCH ×2 (09:30→23:51)
[2021-06-15] MEDS: CHOLECALCIFEROL (VITAMIN D3) 2,000 UNIT TABLET PO SCH (09:30)
[2021-06-15] MEDS: OSELTAMIVIR PHOSPHATE 75 MG CAPSULE PO SCH ×2 (09:30→23:51)
[2021-06-15] MEDS: PANTOPRAZOLE SODIUM 40 MG/VIAL (PROTONIX) IVP SCH (09:30)
[2021-06-15] MEDS: ASCORBIC ACID 500 MG TABLET PO SCH (09:30)
[2021-06-15] MEDS ORDERED: K PHOS 30 MM in NS 250 ML IV ONE (09:30)
[2021-06-15] MEDS: FUROSEMIDE 40 MG/4 ML VIAL IVP SCH (10:15)
--- NOTE | 2021-06-15 13:15 | NUR ---
RT NOTES RN WAS NOTIFIED. FIO2 TO 0.50 DUE TO LOW SATURATION. PT BECOMES EASILY AGITATED EVEN WITH SLIGHTEST STIMULATION, MAY NEED MORE SEDATION.
--- NOTE | 2021-06-15 13:17 | NUR ---
0830 Reinserted orogastric tube. Will order chest x-ray to verify placement before using the access for medications.
--- NOTE | 2021-06-15 15:35 | NUR ---
RT NOTES FIO2 to 0.45. Rn notified.
--- NOTE | 2021-06-15 16:30 | NUR ---
ICU 1 [facility] Nutrition F/U: RD reviewed pt's current EMR record including diet Hx, physician notes, nursing notes, pertinent labs/meds/procedures, care trends, and care activity. Admitting Diagnosis CHF, influenza, COVID Medical History Comment: DM, PE in R arm, RA, and gout per physician notes Pt also found w/ septic shock, acute covi 19 pneumonia, hypoension per physician notes SARS-CoV-2 Ag (Rapid) Positive 06/10 & Influenza B Positive 06/[address] pt at bedside, TF is running, per primary RN, NGT was felled out of unknown time frame. RD reinserted through OGT and restarted the feeding. Rn also informed that possibly of providing additional protein intake due to low Alb level and incident of NGT felt out cause inadequate nutrient intake. Per EMR, Pt remains intubated and is more awake per MD note, respiratory failure slowly getting better, will start weaning trial w/ CPAP. Skin risk score of 15 noted, skin intact. Pt is tolerating TF with no residual noted. Current TF prescription is not meeting estimated needs but beneficial at current rate for weaning trials efficacy and consider adjusting rate in the next follow up to prevent weight change. Current Diet Order/Nutrition Support Vital AF 1.2 ar 40ml/hr (goal rate), FWF 240ml Q6hrs via OGT x 4 days Patient/Significant Other Unable To Verbalize Education Provided Not Indicated Pertinent Medications Potassium phosphate, protonix, zinc, VIT D3, VIT C, lasix, lovenox, propofol at 1.92 ml/hr (51 kcal/day) Pertinent Labs (06/15) WBC 13.4 H, Na 147 H, CL: 111 H, K: 3.2 L, BUN 26 H, BG 183 H, ALB: 2.4 L Height (Feet) 5 feet Height (Inches) 5.00 inches Weight (Pounds) 141 pounds Weight (Calculated Kilograms) 63.458996 kilograms Patient Weight 63.957 kg- stable since 06/12 Body Mass Index 23.46 kg/m2 %IBW 104 [place]/Adjusted Body Weight 136#/62 kg Recent Weight Change Unable to verify Weight Status Appropriate Food Allergies Unable to verify Estimated Energy Expenditure (kcals/day) 1583 (PSU d/t critical illness, intubated; Ve: 11.7, Tmax: 36.9'C) Estimated Protein Required (g/day) 96-128 (1.5-2 gm/kg CBW d/t sepsis) Estimated Fluid Required (l/day) Per physician d/t CHF Problem/Etiology/Signs/Symptoms Increased nutritional needs R/T metabolic demands AEB estimated nutritional requirements for sepsis (*on going). Altered nutrition-related labs R/T endocrine dysfunction AEB elevated BG lab values (*on going). Expected Outcomes/Goals - Monitor provision of EN support w/ goal of pt meeting at least 75% of estimated nutritional needs, labs trending WNL, normal GI function, and skin integrity/wt maintenance, weaning status Dietitian Recommendations *Increasing Vital AF 1.2 to 50 ml/hr; if bolus feedin ml Q6h (960 kcal/day), Free Water Flush: per physician d/t CHF via OGT Provides 1440 kcal/day, 90 gm protein/day, and 973 ml free water/day Meets: 90% of estimated caloric needs and 93% of lower end of estimated nutritional needs *Prosource 1 pkt BID via OGT ( provide additional 120 kcal, 30g protein) Follow Up High Risk: F/U in 2-3days
--- NOTE | 2021-06-15 16:38 | NUR ---
Dietitian Recommendations *Increasing Vital AF 1.2 to 50 ml/hr; if bolus feedin ml Q6h (960 kcal/day), Free Water Flush: per physician d/t CHF via OGT Provides 1440 kcal/day, 90 gm protein/day, and 973 ml free water/day Meets: 90% of estimated caloric needs and 93% of lower end of estimated nutritional needs *Prosource 1 pkt BID ( provide additional 120 kcal, 30g protein) Please refer to nutrition assessment for details.
[2021-06-15] MEDS ORDERED: ATROPINE SULFATE 0.4 MG/ML VIAL IVP PRN (23:30)
[2021-06-16] VITALS (31 sets, daily range): BP systolic 101–182
[2021-06-16] MEDS: PROPOFOL DRIP 100 ML IV PRN ×3 (02:23→22:22)
[2021-06-16 06:03] LABS: HEMATOCRIT 32.1 % (36-54); MEAN CORPUSCULAR HEMOGLOBIN 21 pg (27-31); MEAN CORPUSCULAR HGB CONC 31 % (32-36); MEAN CORPUSCULAR VOLUME 69 fL (79.0-98.0); PLATELET COUNT (AUTO) 403 K/uL (130-430); RED BLOOD CELL COUNT(AUTO) 4.68 MIL/uL (4.2-6.2); RED CELL DISTRIBUTION WIDTH 21.5 % (9.0-15.0); WHITE BLOOD COUNT (AUTO) 13.2 K/uL (4.8-10.8)
[2021-06-16] MEDS: PIPERACILLIN/TAZO 3.375 GM in NS 50 ML IV SCH ×3 (06:17→18:43)
[2021-06-16] MEDS: METHYLPREDNISOLONE SOD SUCC 40 MG/ML VIAL IVP SCH ×3 (06:17→21:00)
[2021-06-16] MEDS ORDERED: hydrALAZINE HCL 20 MG/ML VIAL IVP PRN (06:30)
[2021-06-16 06:31] LABS: ALANINE AMINOTRANSFERASE 19 U/L (12-78); ALBUMIN 2.3 g/dL (3.4-4.8); ANION GAP 8 (5-15); ASPARTATE AMINOTRANSFERASE 14 U/L (10-37); CALCIUM 8.8 mg/dL (8.4-11.0); CHLORIDE 111 mmol/L (98-107); CREATININE 0.51 mg/dL (0.55-1.30); GLUCOSE 241 mg/dL (70-99); PHOSPHORUS 3.3 mg/dL (2.7-4.5); SODIUM SERUM 146 mmol/L (136-145); TOTAL BILIRUBIN 0.3 mg/dL (0.0-1.0); UREA NITROGEN, BLOOD 24 mg/dL (8-21)
[2021-06-16] MEDS ORDERED: hydrALAZINE HCL 20 MG/ML VIAL ONE (06:33)
--- NOTE | 2021-06-16 06:45 | NUR ---
Spoke with Dr. Mendoza concerning high blood pressure. New orders received and administered.
--- NOTE | 2021-06-16 07:10 | NUR ---
Opening Notes Received patient from Denzel, patient bradycardia and tachypneic, tubefeeding vital AF 1.2 50 ml/h skin is intact around feeding tube and vent tube. Patient had a BM, changed patients sheets, assessed skin, warm, dry, and intact. Repositioned patient, Propofol running at 15 mg/kg, Precedex 0.3 mg/kg, NS 50 ml/hr.
[2021-06-16] MEDS: ALBUTEROL MDI INHALATION 8 GM INH INH SCH ×2 (07:35→11:37)
--- NOTE | 2021-06-16 07:35 | NUR ---
RT NOTES pt is tachypneic, appears anxious, low saturation. Dr Mendoza at bedside, instructed rn to increase sedation. vent to simv 12, FIO2 0.50.
[2021-06-16] MEDS: FUROSEMIDE 40 MG/4 ML VIAL IVP SCH (09:08)
[2021-06-16] MEDS: PANTOPRAZOLE SODIUM 40 MG/VIAL (PROTONIX) IVP SCH (09:08)
[2021-06-16] MEDS: OSELTAMIVIR PHOSPHATE 75 MG CAPSULE PO SCH ×2 (09:09→21:00)
[2021-06-16] MEDS: ASCORBIC ACID 500 MG TABLET PO SCH (09:09)
[2021-06-16] MEDS: CHOLECALCIFEROL (VITAMIN D3) 2,000 UNIT TABLET PO SCH (09:09)
[2021-06-16] MEDS: SACUBITRIL/VALSARTAN 24 MG-26 MG 1 TABLET PO SCH (09:10)
[2021-06-16] MEDS: ENOXAPARIN SODIUM 40 MG/0.4 ML SYRINGE SUBCUT SCH (09:11)
--- NOTE | 2021-06-16 10:00 | NUR ---
Partition Assembly Machine Operator David Barakat came in to interrogate pt's ICD.
--- NOTE | 2021-06-16 11:30 | NUR ---
RT change FiO2 to 45%.
--- NOTE | 2021-06-16 12:31 | NUR ---
FAMILY PT'S VICKEY CAME IN TO VISIT, UPDATE GIVEN ON PT'S CONDITION.
[2021-06-16 14:31] LABS: BAND % (MANUAL) 2 % (0-6); BASOPHILS % (MANUAL) 0 % (0-2); CORRECTED WHITE BLOOD COUNT 11.9 K/uL (4.5-11.0); EOSINOPHILS % (MANUAL) 0 % (0-7); LYMPHOCYTES % (MANUAL) 16 % (20-46); METAMYELOCYTES % 1 % (0-0); MONOCYTES % (MANUAL) 7 % (0-11)
--- NOTE | 2021-06-16 15:25 | NUR ---
RT NOTES FIO2 TO 0.40. RN NOTIFIED.
[2021-06-16] MEDS: DEXMEDETOMIDINE HCL 400 MCG in NS 96 ML IV PRN (16:14)
[2021-06-16] MEDS: NACL 0.9% 1,000 ML IV SCH (16:15)
--- NOTE | 2021-06-16 19:15 | NUR ---
Closing Notes Patient is clean and dry, Diprivan 30 mg, Precedex 0.5 mg, NS 100 mL/hr. Wakes up when talked to, coughs over the vent, drained 1200 ml of urine.
[2021-06-17] VITALS (33 sets, daily range): BP systolic 95–171
[2021-06-17] MEDS: SACUBITRIL/VALSARTAN 24 MG-26 MG 1 TABLET PO SCH ×3 (00:40→21:54)
[2021-06-17] MEDS: PIPERACILLIN/TAZO 3.375 GM in NS 50 ML IV SCH ×4 (00:40→21:53)
[2021-06-17] MEDS: PROPOFOL DRIP 100 ML IV PRN ×2 (03:22→15:08)
[2021-06-17] MEDS: ALBUTEROL MDI INHALATION 8 GM INH INH SCH ×3 (06:00→18:00)
[2021-06-17 06:11] LABS: EOSINOPHILS % (AUTO) 0.1 % (0.0-4.0)
[2021-06-17 06:14] LABS: ANION GAP 9 (5-15); CALCIUM 8.3 mg/dL (8.4-11.0); CHLORIDE 113 mmol/L (98-107); CREATININE 0.44 mg/dL (0.55-1.30); GLUCOSE 240 mg/dL (70-99); POTASSIUM 3.4 mmol/L (3.5-5.1); SODIUM SERUM 148 mmol/L (136-145); UREA NITROGEN, BLOOD 27 mg/dL (8-21)
[2021-06-17] MEDS: NACL 0.9% 1,000 ML IV SCH ×2 (06:49→15:08)
[2021-06-17] MEDS: METHYLPREDNISOLONE SOD SUCC 40 MG/ML VIAL IVP SCH ×3 (06:50→21:55)
[2021-06-17 06:52] LABS: BASOPHILS % (AUTO) 0.4 % (0.0-2.0); RED CELL DISTRIBUTION WIDTH 21.7 % (9.0-15.0)
[2021-06-17 07:05] LABS: HEMATOCRIT 31.1 % (36-54); HEMOGLOBIN 9.5 g/dL (14.0-18.0); LYMPHOCYTES # (AUTO) 1.7 K/uL (1.0-5.5); LYMPHOCYTES % (AUTO) 15.1 % (20.5-51.5); MEAN CORPUSCULAR HEMOGLOBIN 21 pg (27-31); MEAN CORPUSCULAR HGB CONC 31 % (32-36); MEAN CORPUSCULAR VOLUME 69 fL (79.0-98.0); MONOCYTES # (AUTO) 0.5 K/uL (0.0-1.0); MONOCYTES % (AUTO) 4.7 % (1.7-9.3); NEUTROPHILS % (AUTO) 79.7 % (40.0-70.0); PLATELET COUNT (AUTO) 418 K/uL (130-430); RED BLOOD CELL COUNT(AUTO) 4.49 MIL/uL (4.2-6.2); WHITE BLOOD COUNT (AUTO) 11.3 K/uL (4.8-10.8)
[2021-06-17] MEDS: PANTOPRAZOLE SODIUM 40 MG/VIAL (PROTONIX) IVP SCH (09:31)
[2021-06-17] MEDS: FUROSEMIDE 40 MG/4 ML VIAL IVP SCH (09:31)
[2021-06-17] MEDS: OSELTAMIVIR PHOSPHATE 75 MG CAPSULE PO SCH ×2 (09:31→21:54)
[2021-06-17] MEDS: ASCORBIC ACID 500 MG TABLET PO SCH (09:32)
[2021-06-17] MEDS: CHOLECALCIFEROL (VITAMIN D3) 2,000 UNIT TABLET PO SCH (09:32)
[2021-06-17] MEDS: ENOXAPARIN SODIUM 40 MG/0.4 ML SYRINGE SUBCUT SCH (09:35)
[2021-06-17] MEDS: DEXMEDETOMIDINE HCL 400 MCG in NS 96 ML IV PRN ×2 (14:05→22:04)
--- NOTE | 2021-06-17 14:06 | NUR ---
rt notes 1114 Titrated fio2 to 35%, pt saturating 95%. 1200 Placed back to 40% fio2, pt desaturating to 86% when RN decreased profopol to minimum and just precedex on. will try titration again later. will continue to monitor pt.
[2021-06-18] VITALS (33 sets, daily range): BP systolic 116–177
[2021-06-18] MEDS ORDERED: DEXMEDETOMIDINE HCL 200 MCG/2 ML VIAL IV ONE (05:00)
[2021-06-18] MEDS: PROPOFOL DRIP 100 ML IV PRN (06:20)
[2021-06-18] MEDS: METHYLPREDNISOLONE SOD SUCC 40 MG/ML VIAL IVP SCH ×3 (06:21→21:35)
[2021-06-18] MEDS: DEXMEDETOMIDINE HCL 400 MCG in NS 96 ML IV PRN ×2 (06:22→12:26)
[2021-06-18 06:37] LABS: BASOPHILS # (AUTO) 0.1 K/uL (0.0-0.2); BASOPHILS % (AUTO) 0.6 % (0.0-2.0); EOSINOPHILS # (AUTO) 0.1 K/uL (0.0-0.4); EOSINOPHILS % (AUTO) 1.1 % (0.0-4.0); HEMATOCRIT 33.4 % (36-54); HEMOGLOBIN 10.2 g/dL (14.0-18.0); LYMPHOCYTES # (AUTO) 2.1 K/uL (1.0-5.5); LYMPHOCYTES % (AUTO) 19.8 % (20.5-51.5); MEAN CORPUSCULAR HEMOGLOBIN 21 pg (27-31); MEAN CORPUSCULAR HGB CONC 31 % (32-36); MEAN CORPUSCULAR VOLUME 70 fL (79.0-98.0); MONOCYTES # (AUTO) 0.8 K/uL (0.0-1.0); MONOCYTES % (AUTO) 7.6 % (1.7-9.3); NEUTROPHILS # (AUTO) 7.5 K/uL (1.8-7.7); NEUTROPHILS % (AUTO) 70.9 % (40.0-70.0); PLATELET COUNT (AUTO) 413 K/uL (130-430); RED BLOOD CELL COUNT(AUTO) 4.79 MIL/uL (4.2-6.2); RED CELL DISTRIBUTION WIDTH 21.9 % (9.0-15.0); WHITE BLOOD COUNT (AUTO) 10.6 K/uL (4.8-10.8)
[2021-06-18 06:41] LABS: ANION GAP 7 (5-15); CALCIUM 8.2 mg/dL (8.4-11.0); CHLORIDE 114 mmol/L (98-107); CREATININE 0.42 mg/dL (0.55-1.30); GLUCOSE 266 mg/dL (70-99); SODIUM SERUM 149 mmol/L (136-145); UREA NITROGEN, BLOOD 27 mg/dL (8-21)
[2021-06-18] MEDS: PIPERACILLIN/TAZO 3.375 GM in NS 50 ML IV SCH ×4 (07:38→20:15)
[2021-06-18] MEDS: ALBUTEROL MDI INHALATION 8 GM INH INH SCH ×4 (07:45→18:00)
[2021-06-18] MEDS: CHOLECALCIFEROL (VITAMIN D3) 2,000 UNIT TABLET PO SCH (09:17)
[2021-06-18] MEDS: PANTOPRAZOLE SODIUM 40 MG/VIAL (PROTONIX) IVP SCH (09:17)
[2021-06-18] MEDS: FUROSEMIDE 40 MG/4 ML VIAL IVP SCH (09:17)
[2021-06-18] MEDS: SACUBITRIL/VALSARTAN 24 MG-26 MG 1 TABLET PO SCH ×2 (09:18→21:35)
[2021-06-18] MEDS: ASCORBIC ACID 500 MG TABLET PO SCH (09:18)
[2021-06-18] MEDS: ENOXAPARIN SODIUM 40 MG/0.4 ML SYRINGE SUBCUT SCH (09:24)
[2021-06-18] MEDS ORDERED: POTASSIUM CHLORIDE 20 MEQ/PKT PACKET PO ONE (09:45)
--- NOTE | 2021-06-18 10:15 | NUR ---
RT NOTES Vent back to previous settings SIMV 12 450 PS 10 +5 40% per CPAP for 1 hour. Pt. appears fatigued, paradoxical breathing noted. RN notified.
[2021-06-18] MEDS: NACL 0.9% 1,000 ML IV SCH (12:21)
--- NOTE | 2021-06-18 12:41 | NUR ---
RT NOTES Vent to simv [address] laboy's order. will monitor pt. Rn at bedside, made aware of new order.
[2021-06-18] MEDS: ACETAMINOPHEN 500 MG TABLET NG PRN (14:10)
[2021-06-19] VITALS (36 sets, daily range): BP systolic 116–179
[2021-06-19] MEDS: PIPERACILLIN/TAZO 3.375 GM in NS 50 ML IV SCH ×4 (01:00→18:00)
[2021-06-19] MEDS: ACETAMINOPHEN 500 MG TABLET NG PRN (01:16)
[2021-06-19] MEDS: ALBUTEROL MDI INHALATION 8 GM INH INH SCH ×3 (06:00→13:25)
[2021-06-19 06:38] LABS: BASOPHILS % (AUTO) 0.4 % (0.0-2.0); HEMATOCRIT 34.8 % (36-54); HEMOGLOBIN 10.4 g/dL (14.0-18.0); LYMPHOCYTES # (AUTO) 1.3 K/uL (1.0-5.5); LYMPHOCYTES % (AUTO) 11.5 % (20.5-51.5); MEAN CORPUSCULAR HEMOGLOBIN 21 pg (27-31); MEAN CORPUSCULAR HGB CONC 30 % (32-36); MEAN CORPUSCULAR VOLUME 70 fL (79.0-98.0); MONOCYTES # (AUTO) 0.3 K/uL (0.0-1.0); MONOCYTES % (AUTO) 2.3 % (1.7-9.3); NEUTROPHILS # (AUTO) 9.8 K/uL (1.8-7.7); NEUTROPHILS % (AUTO) 85.8 % (40.0-70.0); PLATELET COUNT (AUTO) 376 K/uL (130-430); RED BLOOD CELL COUNT(AUTO) 4.97 MIL/uL (4.2-6.2); RED CELL DISTRIBUTION WIDTH 22.7 % (9.0-15.0); WHITE BLOOD COUNT (AUTO) 11.4 K/uL (4.8-10.8)
[2021-06-19] MEDS: METHYLPREDNISOLONE SOD SUCC 40 MG/ML VIAL IVP SCH ×3 (06:44→21:40)
[2021-06-19 06:49] LABS: ANION GAP 7 (5-15); CALCIUM 8.4 mg/dL (8.4-11.0); CHLORIDE 117 mmol/L (98-107); CREATININE 0.41 mg/dL (0.55-1.30); GLUCOSE 319 mg/dL (70-99); POTASSIUM 3.4 mmol/L (3.5-5.1); SODIUM SERUM 150 mmol/L (136-145); UREA NITROGEN, BLOOD 30 mg/dL (8-21)
[2021-06-19] MEDS: PANTOPRAZOLE SODIUM 40 MG/VIAL (PROTONIX) IVP SCH (10:37)
[2021-06-19] MEDS: FUROSEMIDE 40 MG/4 ML VIAL IVP SCH (10:37)
[2021-06-19] MEDS: CHOLECALCIFEROL (VITAMIN D3) 2,000 UNIT TABLET PO SCH (10:37)
[2021-06-19] MEDS: ASCORBIC ACID 500 MG TABLET PO SCH (10:37)
[2021-06-19] MEDS: ENOXAPARIN SODIUM 40 MG/0.4 ML SYRINGE SUBCUT SCH (10:54)
[2021-06-19] MEDS: SACUBITRIL/VALSARTAN 24 MG-26 MG 1 TABLET PO SCH ×2 (12:12→21:39)
[2021-06-19] MEDS: DEXMEDETOMIDINE HCL 400 MCG in NS 96 ML IV PRN ×2 (12:58→17:00)
[2021-06-20] VITALS (32 sets, daily range): BP systolic 101–210
[2021-06-20] MEDS: PIPERACILLIN/TAZO 3.375 GM in NS 50 ML IV SCH ×3 (01:28→12:27)
[2021-06-20] MEDS: DEXMEDETOMIDINE HCL 400 MCG in NS 96 ML IV PRN ×4 (01:53→20:53)
[2021-06-20] MEDS: METHYLPREDNISOLONE SOD SUCC 40 MG/ML VIAL IVP SCH ×3 (05:44→21:13)
[2021-06-20 06:16] LABS: BASOPHILS # (AUTO) 0.1 K/uL (0.0-0.2); BASOPHILS % (AUTO) 0.7 % (0.0-2.0); EOSINOPHILS % (AUTO) 0.1 % (0.0-4.0); HEMATOCRIT 33.4 % (36-54); HEMOGLOBIN 9.9 g/dL (14.0-18.0); LYMPHOCYTES # (AUTO) 1.8 K/uL (1.0-5.5); LYMPHOCYTES % (AUTO) 14.5 % (20.5-51.5); MEAN CORPUSCULAR HEMOGLOBIN 21 pg (27-31); MEAN CORPUSCULAR HGB CONC 30 % (32-36); MEAN CORPUSCULAR VOLUME 71 fL (79.0-98.0); MONOCYTES # (AUTO) 0.8 K/uL (0.0-1.0); MONOCYTES % (AUTO) 6.6 % (1.7-9.3); NEUTROPHILS # (AUTO) 9.4 K/uL (1.8-7.7); NEUTROPHILS % (AUTO) 78.1 % (40.0-70.0); PLATELET COUNT (AUTO) 351 K/uL (130-430); RED BLOOD CELL COUNT(AUTO) 4.74 MIL/uL (4.2-6.2); RED CELL DISTRIBUTION WIDTH 22.8 % (9.0-15.0); WHITE BLOOD COUNT (AUTO) 12.1 K/uL (4.8-10.8)
[2021-06-20 06:50] LABS: ALANINE AMINOTRANSFERASE 97 U/L (12-78); ALBUMIN 2.1 g/dL (3.4-4.8); ANION GAP 9 (5-15); ASPARTATE AMINOTRANSFERASE 39 U/L (10-37); CALCIUM 7.3 mg/dL (8.4-11.0); CREATININE 0.42 mg/dL (0.55-1.30); GLUCOSE 331 mg/dL (70-99); PHOSPHORUS 2.6 mg/dL (2.7-4.5); SODIUM SERUM 155 mmol/L (136-145); TOTAL BILIRUBIN 0.3 mg/dL (0.0-1.0); UREA NITROGEN, BLOOD 30 mg/dL (8-21)
[2021-06-20 08:25] LABS: CHLORIDE 120 mmol/L (98-107); POTASSIUM 2.9 mmol/L (3.5-5.1)
[2021-06-20] MEDS ORDERED: POTASSIUM CHLORIDE 20 MEQ/PKT PACKET PO ONE (08:45)
[2021-06-20] MEDS: FUROSEMIDE 40 MG/4 ML VIAL IVP SCH (09:19)
[2021-06-20] MEDS: PANTOPRAZOLE SODIUM 40 MG/VIAL (PROTONIX) IVP SCH (09:20)
[2021-06-20] MEDS: CHOLECALCIFEROL (VITAMIN D3) 2,000 UNIT TABLET PO SCH (09:20)
[2021-06-20] MEDS: ASCORBIC ACID 500 MG TABLET PO SCH (09:20)
[2021-06-20] MEDS: SACUBITRIL/VALSARTAN 24 MG-26 MG 1 TABLET PO SCH ×2 (09:21→21:13)
[2021-06-20] MEDS: ENOXAPARIN SODIUM 40 MG/0.4 ML SYRINGE SUBCUT SCH (09:23)
[2021-06-20] MEDS: ACETAMINOPHEN 500 MG TABLET NG PRN ×2 (14:30→21:14)
--- NOTE | 2021-06-20 17:45 | NUR ---
Nutrition F/U RD reviewed pt's current EMR record including diet Hx, physician notes, nursing notes, pertinent labs/meds/procedures, care trends, and care activity. Admitting Diagnosis CHF, influenza, COVID Medical History Comment: DM, PE in R arm, RA, and gout per physician notes Pt also found w/ septic shock per physician notes SARS-CoV-2 Ag (Rapid) Positive 06/10 & Influenza B Positive 06/10 Subjective Information: RD rounded to ICU and spoke w/ pt's primary RN outside of pt's room. Pt remains on airborne isolation precautions a/w COVID. She stated pt has been tolerating TF well, no GRV, and BM yesterday, loose/pasty consistency. She reported that pt was restarted on sedation last night, and unable to perform CPAP trial today. RN also confirmed use of Prosource BID supplement, and reported that dental director adjusted water flush to 240 ml Q4h (1440 ml/day) d/t elevated sodium level. Current TF prescription remains adequate/appropriate at this time. Current Diet Order/Nutrition Support: Vital AF 1.2 at 50 ml/hr (goal rate); if bolus feedin ml Q6h (1200 ml/day), Prosource BID, Free Water Flush: per physician d/t CHF via OGT x4 days Patient/Significant Other Unable To Verbalize Education Provided Not Indicated Pertinent Medications zinc, VIT D3, VIT C, protonix IV, lasix, lovenox, piperacillin/tazobactam IV, propofol at 5.756 ml/hr (152 kcal/day) Pertinent Labs WBC 12.1 H, Na 155 H, Cl 120 H, K 2.9 L, BUN 30 H, BG 331 H, ALB: 2.1 L, HgA1c 6.9 H Height (Feet) 5 feet Height (Inches) 5.00 inches Weight (Pounds) 141 pounds Weight (Calculated Kilograms) 63.309499 kilograms Patient Weight 63.957 kg -- stable since 06/12 Body Mass Index 23.46 kg/m2 %IBW 104 [place]/Adjusted Body Weight 136#/62 kg Recent Weight Change Unable to verify Weight Status Appropriate Food Allergies Unable to verify NEW Estimated Energy Expenditure (kcals/day) 1679 (PSU d/t critical illness, intubated; Ve: 11.2, Tmax: 37.6'C) Estimated Protein Required (g/day) 96-128 (1.5-2 gm/kg CBW d/t sepsis) Estimated Fluid Required (l/day) Per physician d/t CHF Problem/Etiology/Signs/Symptoms Increased nutritional needs R/T metabolic demands AEB estimated nutritional requirements for sepsis. *Ongoing Altered nutrition-related labs R/T endocrine dysfunction AEB elevated BG lab values. *Ongoing Expected Outcomes/Goals - Monitor provision of EN support w/ goal of pt meeting at least 75% of estimated nutritional needs, labs trending WNL, normal GI function, and skin integrity/wt maintenance, weaning status Dietitian Recommendations * Vital AF 1.2 to 50 ml/hr; if bolus feedin ml Q6h (1200 kcal/day), Free Water Flush: 240 ml Q4h (per physician d/t CHF) via OGT Provides 1560 kcal/day, 120 gm protein/day, and 2413 ml free water/day Meets: 93% of estimated caloric needs and 94% of upper end of estimated nutritional needs Follow Up High Risk: F/U in 2-3 days
--- NOTE | 2021-06-20 17:53 | NUR ---
Dietitian Recommendations * Vital AF 1.2 to 50 ml/hr; if bolus feedin ml Q6h (1200 kcal/day), Free Water Flush: 240 ml Q4h (per physician d/t CHF) via OGT Provides 1560 kcal/day, 120 gm protein/day, and 2413 ml free water/day Meets: 93% of estimated caloric needs and 94% of upper end of estimated nutritional needs LP, RD Please refer to Nutrition F/U for details.
--- NOTE | 2021-06-20 19:20 | NUR ---
Received report from ENOC Mims ENGINEERING AND DEVELOPMENT DIRECTOR.
[2021-06-20] MEDS: ALBUTEROL MDI INHALATION 8 GM INH INH SCH (19:30)
--- NOTE | 2021-06-20 19:40 | NUR ---
Total care done, pericare given, BM X1, loose, Light brown, moderate, Change gown Linen, Chaulks , fitted sheet. Made Clean, Dry & comfortable.
--- NOTE | 2021-06-20 21:15 | NUR ---
Due meds Given, tolerated well, will continue to monitor for signs & symptoms of adverse reactions.
[2021-06-21] VITALS (34 sets, daily range): BP systolic 107–161
--- NOTE | 2021-06-21 00:15 | NUR ---
Turn & reposition q2H for comfort. No complaint of pain or discomfort noted at this time. Will continue monitoring Vital signs as ordered.
[2021-06-21] MEDS: ALBUTEROL MDI INHALATION 8 GM INH INH SCH ×4 (00:42→19:31)
--- NOTE | 2021-06-21 02:25 | NUR ---
Patient sleeping quietly at this time. No pain or discomfort noted at this time.
[2021-06-21] MEDS: METHYLPREDNISOLONE SOD SUCC 40 MG/ML VIAL IVP SCH ×3 (06:09→21:52)
[2021-06-21] MEDS ORDERED: DEXMEDETOMIDINE HCL 200 MCG/2 ML VIAL IV ONE (06:15)
[2021-06-21] MEDS: DEXMEDETOMIDINE HCL 400 MCG in NS 96 ML IV PRN ×2 (06:18→12:44)
[2021-06-21 06:28] LABS: BASOPHILS % (AUTO) 0.2 % (0.0-2.0); EOSINOPHILS % (AUTO) 0.1 % (0.0-4.0); HEMATOCRIT 33.8 % (36-54); LYMPHOCYTES # (AUTO) 1.7 K/uL (1.0-5.5); LYMPHOCYTES % (AUTO) 13.9 % (20.5-51.5); MEAN CORPUSCULAR HEMOGLOBIN 21 pg (27-31); MEAN CORPUSCULAR HGB CONC 30 % (32-36); MEAN CORPUSCULAR VOLUME 71 fL (79.0-98.0); MONOCYTES # (AUTO) 0.7 K/uL (0.0-1.0); MONOCYTES % (AUTO) 5.4 % (1.7-9.3); NEUTROPHILS % (AUTO) 80.4 % (40.0-70.0); PLATELET COUNT (AUTO) 311 K/uL (130-430); RED BLOOD CELL COUNT(AUTO) 4.78 MIL/uL (4.2-6.2); RED CELL DISTRIBUTION WIDTH 23.8 % (9.0-15.0); WHITE BLOOD COUNT (AUTO) 12.4 K/uL (4.8-10.8)
[2021-06-21 06:32] LABS: ALANINE AMINOTRANSFERASE 112 U/L (12-78); ALBUMIN 2.2 g/dL (3.4-4.8); ANION GAP 9 (5-15); ASPARTATE AMINOTRANSFERASE 29 U/L (10-37); CALCIUM 7.2 mg/dL (8.4-11.0); CREATININE 0.41 mg/dL (0.55-1.30); GLUCOSE 339 mg/dL (70-99); POTASSIUM 3.3 mmol/L (3.5-5.1); SODIUM SERUM 155 mmol/L (136-145); TOTAL BILIRUBIN 0.4 mg/dL (0.0-1.0); UREA NITROGEN, BLOOD 29 mg/dL (8-21)
--- NOTE | 2021-06-21 07:39 | NUR ---
RT NOTES Pt is awake, appears to respond to simple questions appropriately. Nodded when asked if education provided about the weaning process was understood. Vent to SIMV of 8. No adverse reactions noted. will monitor pt. Rn notified.
[2021-06-21 08:09] LABS: CHLORIDE 121 mmol/L (98-107)
--- NOTE | 2021-06-21 08:50 | NUR ---
RT NOTES Pt cont. to tolerate SIMV 8, after ABG was drawn, decreased rate to 6. Will monitor pt. RN notified.
[2021-06-21] MEDS ORDERED: INSULIN GLARGINE 100 UNITS/ML 10 ML VIAL SUBCUT SCH (09:00)
[2021-06-21] MEDS: PANTOPRAZOLE SODIUM 40 MG/VIAL (PROTONIX) IVP SCH (09:13)
[2021-06-21] MEDS: FUROSEMIDE 40 MG/4 ML VIAL IVP SCH (09:18)
[2021-06-21] MEDS: ASCORBIC ACID 500 MG TABLET PO SCH (09:19)
[2021-06-21] MEDS: CHOLECALCIFEROL (VITAMIN D3) 2,000 UNIT TABLET PO SCH (09:19)
[2021-06-21] MEDS: ENOXAPARIN SODIUM 40 MG/0.4 ML SYRINGE SUBCUT SCH (09:24)
[2021-06-21] MEDS: SACUBITRIL/VALSARTAN 24 MG-26 MG 1 TABLET PO SCH ×2 (09:26→21:48)
[2021-06-21] MEDS: INSULIN GLARGINE 100 UNITS/ML 10 ML VIAL SUBCUT SCH (10:16)
--- NOTE | 2021-06-21 11:25 | NUR ---
RT NOTES SIMV 4 PS 12. WILL CONT. TO MONITOR PT.RN NOTIFIED.
--- NOTE | 2021-06-21 14:15 | NUR ---
RT NOTES Vent settings CPAP 5 PS 12, No distress noted. Will monitor pt. RN notified. Pt was educated, nodded for understanding.
--- NOTE | 2021-06-21 17:20 | NUR ---
RT NOTES Pt tolerated CPAP for 3 hours, vent back to SIMV 6 to avoid fatigue.
--- NOTE | 2021-06-21 20:00 | NUR ---
Late entry. Noted a small stage 2 (tear) wound with purplish discoloration around the wound on sacral area. Foam dressing is dry and intact. To reposition q 2 hours.
--- NOTE | 2021-06-21 20:20 | NUR ---
Received pt from BABITA Soto, patient is arousable to voice, coherent and is able to nod when asked. Pt remains in isolation for Covid 19. No s/s of distress. Patient remains intubated with ventilator with the following setting SIMV 6, TV= 450, FIO2= 45%, PS=12, PEEP=5, saturating 97%. VS are within acceptable range with heart rate on the 50's Paced (pt with AICD). No s/s of active bleeding. All lines, catheter and tubings are intact. Possible extubation in AM. Addendum: 06/21/21 at 2025 by [place] merit system director pt is currently on Precedex drip at 1 mcg/kg/hr tolerating well. Addendum: 06/21/21 at 2227 by [place] merit system director 20:00 Pt received on bilateral soft wrist restraints. Polyethylene Combiner removed both restraints as patient is cooperative and coherent. Unsafe behaviors like pulling out medical devices not observed. Will continue to monitor if pt needs restraints. Will keep pt OFF restraints for now.
[2021-06-21] MEDS ORDERED: KCL 40 mEq in 100 mL (PREMIX) 100 ML IV ONE (21:30)
[2021-06-22] VITALS (23 sets, daily range): BP systolic 96–136
[2021-06-22] MEDS: ALBUTEROL MDI INHALATION 8 GM INH INH SCH ×5 (00:58→19:00)
[2021-06-22] MEDS: DEXMEDETOMIDINE HCL 400 MCG in NS 96 ML IV PRN (01:11)
[2021-06-22 06:18] LABS: BASOPHILS % (AUTO) 0.5 % (0.0-2.0); EOSINOPHILS % (AUTO) 0.1 % (0.0-4.0); HEMATOCRIT 32.4 % (36-54); HEMOGLOBIN 9.9 g/dL (14.0-18.0); LYMPHOCYTES # (AUTO) 1.9 K/uL (1.0-5.5); MEAN CORPUSCULAR HEMOGLOBIN 22 pg (27-31); MEAN CORPUSCULAR HGB CONC 31 % (32-36); MEAN CORPUSCULAR VOLUME 71 fL (79.0-98.0); MONOCYTES # (AUTO) 0.6 K/uL (0.0-1.0); MONOCYTES % (AUTO) 5.8 % (1.7-9.3); NEUTROPHILS # (AUTO) 7.6 K/uL (1.8-7.7); NEUTROPHILS % (AUTO) 74.6 % (40.0-70.0); PLATELET COUNT (AUTO) 240 K/uL (130-430); RED BLOOD CELL COUNT(AUTO) 4.55 MIL/uL (4.2-6.2); WHITE BLOOD COUNT (AUTO) 10.2 K/uL (4.8-10.8)
--- NOTE | 2021-06-22 06:50 | NUR ---
There is no significant change on pt's status at this time. Patient was placed back on bilateral soft wrists restraints as he tried to pull out his ETT. Otherwise, patient's VS are within acceptable range. Precedex remains at 1 mcg/kg/hr. No s/s of distress. OG tube feeding is well tolerated.
--- NOTE | 2021-06-22 06:52 | NUR ---
Pericare done. Turned pt q 2 hours.
--- NOTE | 2021-06-22 07:10 | NUR ---
RT NOTES Per dr's order, vent to CPAP 5 PS 12 40%. No adverse reactions noted. Pt. responded appropriately, nodded when asked if he understood education provided regarding weaning trials.
[2021-06-22 07:31] LABS: ANION GAP 6 (5-15); CALCIUM 7.3 mg/dL (8.4-11.0); CHLORIDE 118 mmol/L (98-107); CREATININE 0.43 mg/dL (0.55-1.30); GLUCOSE 289 mg/dL (70-99); POTASSIUM 3.9 mmol/L (3.5-5.1); SODIUM SERUM 151 mmol/L (136-145); UREA NITROGEN, BLOOD 29 mg/dL (8-21)
[2021-06-22] MEDS: PANTOPRAZOLE SODIUM 40 MG/VIAL (PROTONIX) IVP SCH (09:37)
[2021-06-22] MEDS: FUROSEMIDE 40 MG/4 ML VIAL IVP SCH (09:37)
[2021-06-22] MEDS: ASCORBIC ACID 500 MG TABLET PO SCH (09:38)
[2021-06-22] MEDS: CHOLECALCIFEROL (VITAMIN D3) 2,000 UNIT TABLET PO SCH (09:38)
--- NOTE | 2021-06-22 10:10 | NUR ---
RT NOTES Before cuff deflation, oral sxn performed. Per Dr 's order, pt. was extubated and placed on 4L nc. No immediate adverse reactions noted, no SOB noted, pt. follows instructions well. Pt. was re-educated on deep breathing exercise as well. Will cont. to monitor pt. Rn at bedside during extubation.
--- NOTE | 2021-06-22 10:10 | NUR ---
Pt extubated and placed O2 at 2L N/C, O@ sat 98%, no signs of respiratory distress, V/S remain stable.
[2021-06-22] MEDS: SACUBITRIL/VALSARTAN 24 MG-26 MG 1 TABLET PO SCH ×2 (11:00→21:39)
[2021-06-22] MEDS: ENOXAPARIN SODIUM 40 MG/0.4 ML SYRINGE SUBCUT SCH (11:07)
[2021-06-22] MEDS: INSULIN GLARGINE 100 UNITS/ML 10 ML VIAL SUBCUT SCH (11:26)
--- NOTE | 2021-06-22 11:50 | NUR ---
RT NOTES O2 TO 2L PER TITRATION ORDER. WILL MONITOR PT. RN NOTIFIED
--- NOTE | 2021-06-22 17:01 | NUR ---
ST EVALUATION COMPLETED. ST TX NOT INDICATED AT THIS TIME. RECOMMEND PO DIET OF PUREE/NECTAR THICK LIQUIDS. 1:1 FEEDER AND FULL ASPIRATION PRECAUTIONS.
[2021-06-22] MEDS: 0.45% NACL 1,000 ML IV SCH (18:53)
[2021-06-22] MEDS: METHYLPREDNISOLONE SOD SUCC 40 MG/ML VIAL IVP SCH (21:40)
[2021-06-22] MEDS: ACETAMINOPHEN 500 MG TABLET NG PRN (21:49)
[2021-06-23] VITALS (15 sets, daily range): BP systolic 114–141
[2021-06-23] MEDS: ALBUTEROL MDI INHALATION 8 GM INH INH SCH ×4 (00:03→20:00)
[2021-06-23 06:03] LABS: BASOPHILS % (AUTO) 0.2 % (0.0-2.0); EOSINOPHILS % (AUTO) 0.1 % (0.0-4.0); HEMATOCRIT 34.5 % (36-54); HEMOGLOBIN 10.4 g/dL (14.0-18.0); LYMPHOCYTES # (AUTO) 1.7 K/uL (1.0-5.5); LYMPHOCYTES % (AUTO) 13.4 % (20.5-51.5); MEAN CORPUSCULAR HEMOGLOBIN 21 pg (27-31); MEAN CORPUSCULAR HGB CONC 30 % (32-36); MEAN CORPUSCULAR VOLUME 71 fL (79.0-98.0); MONOCYTES # (AUTO) 0.4 K/uL (0.0-1.0); MONOCYTES % (AUTO) 2.8 % (1.7-9.3); NEUTROPHILS # (AUTO) 10.6 K/uL (1.8-7.7); NEUTROPHILS % (AUTO) 83.5 % (40.0-70.0); PLATELET COUNT (AUTO) 232 K/uL (130-430); RED BLOOD CELL COUNT(AUTO) 4.88 MIL/uL (4.2-6.2); WHITE BLOOD COUNT (AUTO) 12.7 K/uL (4.8-10.8)
[2021-06-23] MEDS: METHYLPREDNISOLONE SOD SUCC 40 MG/ML VIAL IVP SCH ×3 (06:26→20:47)
[2021-06-23 06:41] LABS: ALANINE AMINOTRANSFERASE 91 U/L (12-78); ALBUMIN 2.3 g/dL (3.4-4.8); ANION GAP 8 (5-15); ASPARTATE AMINOTRANSFERASE 29 U/L (10-37); CALCIUM 7.5 mg/dL (8.4-11.0); CHLORIDE 112 mmol/L (98-107); CREATININE 0.51 mg/dL (0.55-1.30); GLUCOSE 208 mg/dL (70-99); POTASSIUM 3.3 mmol/L (3.5-5.1); SODIUM SERUM 148 mmol/L (136-145); TOTAL BILIRUBIN 0.7 mg/dL (0.0-1.0); UREA NITROGEN, BLOOD 33 mg/dL (8-21)
[2021-06-23] MEDS: ACETAMINOPHEN 500 MG TABLET NG PRN (08:42)
[2021-06-23] MEDS: 0.45% NACL 1,000 ML IV SCH (08:44)
[2021-06-23] MEDS: ASCORBIC ACID 500 MG TABLET PO SCH (08:46)
[2021-06-23] MEDS: CHOLECALCIFEROL (VITAMIN D3) 2,000 UNIT TABLET PO SCH (08:46)
[2021-06-23] MEDS: FUROSEMIDE 40 MG/4 ML VIAL IVP SCH (08:52)
[2021-06-23] MEDS: PANTOPRAZOLE SODIUM 40 MG/VIAL (PROTONIX) IVP SCH (08:52)
[2021-06-23] MEDS: SACUBITRIL/VALSARTAN 24 MG-26 MG 1 TABLET PO SCH ×2 (09:03→20:49)
[2021-06-23] MEDS: INSULIN GLARGINE 100 UNITS/ML 10 ML VIAL SUBCUT SCH (09:09)
[2021-06-23] MEDS: ENOXAPARIN SODIUM 40 MG/0.4 ML SYRINGE SUBCUT SCH (09:10)
--- NOTE | 2021-06-23 15:45 | NUR ---
Nutrition F/U RD reviewed pt's current EMR record including diet Hx, physician notes, nursing notes, pertinent labs/meds/procedures, care trends, and care activity. Admitting Diagnosis CHF, influenza, COVID Medical History Comment: DM, PE in R arm, RA, and gout per physician notes Pt also found w/ septic shock per physician notes SARS-CoV-2 Ag (Rapid) Positive 06/10 & Influenza B Positive 06/10 Subjective Information: Pt remains on airborne isolation precautions a/w COVID. RD bedside visit deferred. Pt's primary RN was not present in unit at time of RD visit. RD spoke w/ charge coordinator who reported that pt is tolerating pureed diet, and may benefit from texture advancement. She stated pt does not an additional ST swallow eval for this. Per EMR review, pt was extubated yesterday, 06/[address] for swallow eval, at which time, ST rec for puree/NTL diet w/ 1:1 feeder and full aspiration precautions; pt is on 2 L O2 via NC; plan to downgrade to telemetry unit; AM labs; no PO intake records documented yet; TF was D/C yesterday; active bowel sounds; Brayan scale: 15, no PIs noted. Current diet is appropriate, however, pt may not yet be meeting nutritional needs. Current Diet Order/Nutrition Support: Pureed, CCHO low carb-45, cardiac, NTL diet x0 days Patient/Significant Other Unable To Verbalize Education Provided Not Indicated Pertinent Medications lantus, zinc, VIT C, protonix IV, lasix, lovenox, solu-medrol Pertinent Labs WBC 12.7 H, Na 148 H, Cl 112 H, K 3.3 L, BUN 33 H, BG 208 H, ALB 2.3 L, HgA1c 6.9 H (06/11) Height (Feet) 5 feet Height (Inches) 5.00 inches Weight (Pounds) 141 pounds Weight (Calculated Kilograms) 63.447229 kilograms Patient Weight 63.957 kg -- stable since 06/12 Body Mass Index 23.46 kg/m2 %IBW 104 [place]/Adjusted Body Weight 136#/62 kg Recent Weight Change Unable to verify Weight Status Appropriate Food Allergies Unable to verify NEW Estimated Energy Expenditure (kcals/day) 1546-0613 (30-35 kcal/kg CBW d/t sepsis) Estimated Protein Required (g/day) 96-128 (1.5-2 gm/kg CBW d/t sepsis) Estimated Fluid Required (l/day) Per physician d/t CHF Problem/Etiology/Signs/Symptoms Increased nutritional needs R/T metabolic demands AEB estimated nutritional requirements for sepsis. *Ongoing Altered nutrition-related labs R/T endocrine dysfunction AEB elevated BG lab values. *Ongoing Expected Outcomes/Goals - Monitor provision of EN support w/ goal of pt meeting at least 75% of estimated nutritional needs, labs trending WNL, normal GI function, and skin integrity/wt maintenance, weaning status Dietitian Recommendations * Continue pureed, CCHO low carb-45 gm, cardiac, NTL diet (ONS Glucerna TID comes standard w/ this diabetic pureed diet; ONS yields 660 kcal/day, 30 gm protein/day) * Consider advance diet texture per physician Follow Up High Risk: F/U in 2-3 days
--- NOTE | 2021-06-23 15:52 | NUR ---
Dietitian Recommendations * Continue pureed, CCHO low carb-45 gm, cardiac, NTL diet (ONS Glucerna TID comes standard w/ this diabetic pureed diet; ONS yields 660 kcal/day, 30 gm protein/day) * Consider advance diet texture per physician LP, RD Please refer to Nutrition F/U for details.
--- NOTE | 2021-06-23 18:10 | NUR ---
PT TO TELE: PT TRANSFERRED TO TELE. REPORT GIVEN TO RN USING SBAR REPORTING. ALL SAFETY PRECAUTIONS ENFORCED. UPDATED.
--- NOTE | 2021-06-23 18:10 | NUR ---
received patient from ICU, hook the patient on the monitor,O2 at 4l/min,kept comfortable.
[2021-06-23] MEDS ORDERED: CARVEDILOL 12.5 MG TABLET (COREG) ONE (20:18)
[2021-06-23] MEDS: CARVEDILOL 6.25 MG TABLET (COREG) PO SCH (20:48)
[2021-06-24] MEDS: 0.45% NACL 1,000 ML IV SCH ×2 (00:15→21:22)
[2021-06-24] MEDS: ALBUTEROL MDI INHALATION 8 GM INH INH SCH ×3 (00:16→14:15)
[2021-06-24 00:35] VITALS: BP_SYST 120
[2021-06-24] MEDS ORDERED: POTASSIUM CHLORIDE 20 MEQ TAB.PRT.SR PO ONE (05:15)
[2021-06-24] MEDS ORDERED: POTASSIUM CHLORIDE 20 MEQ TAB.PRT.SR ONE (05:20)
[2021-06-24] MEDS: METHYLPREDNISOLONE SOD SUCC 40 MG/ML VIAL IVP SCH ×3 (05:49→21:07)
--- NOTE | 2021-06-24 06:07 | NUR ---
40 MEQ POTASSIUM GIVEN ORDERED BY ANA LUISA CHONG. IN ORDER HISTORY SHOWS THAT THEIRS ANOTHER ORDER 2O MEQ PER PHARMACIST THATS THE ONE THAT WAS PULLED OUT IN THE MEDICATION CABINET.
[2021-06-24 07:24] LABS: BASOPHILS # (AUTO) 0.1 K/uL (0.0-0.2); BASOPHILS % (AUTO) 0.6 % (0.0-2.0); EOSINOPHILS % (AUTO) 0.1 % (0.0-4.0); HEMATOCRIT 32.7 % (36-54); HEMOGLOBIN 9.9 g/dL (14.0-18.0); LYMPHOCYTES # (AUTO) 1.2 K/uL (1.0-5.5); LYMPHOCYTES % (AUTO) 8.6 % (20.5-51.5); MEAN CORPUSCULAR HEMOGLOBIN 21 pg (27-31); MEAN CORPUSCULAR HGB CONC 30 % (32-36); MEAN CORPUSCULAR VOLUME 71 fL (79.0-98.0); MONOCYTES # (AUTO) 0.2 K/uL (0.0-1.0); MONOCYTES % (AUTO) 1.5 % (1.7-9.3); NEUTROPHILS # (AUTO) 12.1 K/uL (1.8-7.7); NEUTROPHILS % (AUTO) 89.2 % (40.0-70.0); PLATELET COUNT (AUTO) 185 K/uL (130-430); RED BLOOD CELL COUNT(AUTO) 4.62 MIL/uL (4.2-6.2); WHITE BLOOD COUNT (AUTO) 13.5 K/uL (4.8-10.8)
[2021-06-24 07:57] LABS: ALANINE AMINOTRANSFERASE 66 U/L (12-78); ALBUMIN 2.2 g/dL (3.4-4.8); ANION GAP 6 (5-15); ASPARTATE AMINOTRANSFERASE 25 U/L (10-37); CALCIUM 7.1 mg/dL (8.4-11.0); CHLORIDE 110 mmol/L (98-107); CREATININE 0.38 mg/dL (0.55-1.30); GLUCOSE 87 mg/dL (70-99); POTASSIUM 3.5 mmol/L (3.5-5.1); SODIUM SERUM 142 mmol/L (136-145); TOTAL BILIRUBIN 0.9 mg/dL (0.0-1.0); UREA NITROGEN, BLOOD 27 mg/dL (8-21)
[2021-06-24 08:00] VITALS: BP_SYST 118
--- NOTE | 2021-06-24 08:00 | NUR ---
Morning rounds: Pt A/Ox2 resting in bed. NO s/s of respiratory or cardiac distress, NC running at 5L, SPO2 92%. Right IJ site is clean, dry and intact with ordered fluids running. Fall, safety, isolation and aspiration precautions are in place, call light is within reach, will continue to monitor.
[2021-06-24] MEDS: PANTOPRAZOLE SODIUM 40 MG/VIAL (PROTONIX) IVP SCH (10:11)
[2021-06-24] MEDS: FUROSEMIDE 40 MG/4 ML VIAL IVP SCH (10:11)
[2021-06-24] MEDS: CHOLECALCIFEROL (VITAMIN D3) 2,000 UNIT TABLET PO SCH (10:12)
[2021-06-24] MEDS: ASCORBIC ACID 500 MG TABLET PO SCH (10:12)
[2021-06-24] MEDS: CARVEDILOL 6.25 MG TABLET (COREG) PO SCH ×2 (10:12→21:06)
[2021-06-24] MEDS: ENOXAPARIN SODIUM 40 MG/0.4 ML SYRINGE SUBCUT SCH (10:15)
[2021-06-24] MEDS: INSULIN GLARGINE 100 UNITS/ML 10 ML VIAL SUBCUT SCH (10:16)
[2021-06-24 12:00] VITALS: BP_SYST 117
[2021-06-24] MEDS: SACUBITRIL/VALSARTAN 24 MG-26 MG 1 TABLET PO SCH ×2 (13:23→21:07)
[2021-06-24 16:59] VITALS: BP_SYST 119
--- NOTE | 2021-06-24 18:59 | NUR ---
Closing notes: Pt A/Ox2 resting in bed. NO s/s of respiratory or cardiac distress, NC running at 5L, SPO2 92%. Right IJ site is clean, dry and intact with ordered fluids running. Fall, safety, isolation and aspiration precautions are in place, call light is within reach, will endorse to night worker.
[2021-06-24 20:00] VITALS: BP_SYST 108
[2021-06-25] VITALS (7 sets, daily range): BP systolic 112–152
[2021-06-25] MEDS: METHYLPREDNISOLONE SOD SUCC 40 MG/ML VIAL IVP SCH ×3 (06:01→20:35)
[2021-06-25] MEDS: ALBUTEROL MDI INHALATION 8 GM INH INH SCH ×2 (08:20→19:05)
[2021-06-25] MEDS: PANTOPRAZOLE SODIUM 40 MG/VIAL (PROTONIX) IVP SCH (09:23)
[2021-06-25] MEDS: FUROSEMIDE 40 MG/4 ML VIAL IVP SCH (09:24)
[2021-06-25] MEDS: CARVEDILOL 6.25 MG TABLET (COREG) PO SCH ×2 (09:25→20:34)
[2021-06-25] MEDS: CHOLECALCIFEROL (VITAMIN D3) 2,000 UNIT TABLET PO SCH (09:26)
[2021-06-25] MEDS: ENOXAPARIN SODIUM 40 MG/0.4 ML SYRINGE SUBCUT SCH (09:26)
[2021-06-25] MEDS: SACUBITRIL/VALSARTAN 24 MG-26 MG 1 TABLET PO SCH ×2 (09:27→20:35)
[2021-06-25] MEDS: ASCORBIC ACID 500 MG TABLET PO SCH (09:27)
--- NOTE | 2021-06-25 11:20 | NUR ---
Notes Awake, O2 sat at 96% in 5L, blood sugar is 220. Repositioned for comfort. help patient to use insetive spirometer.
[2021-06-25] MEDS: INSULIN GLARGINE 100 UNITS/ML 10 ML VIAL SUBCUT SCH (11:45)
--- NOTE | 2021-06-25 16:00 | NUR ---
NOTES PATIENT, ASLEEP. O2 SAT AT 98% AT 4L NOW. PATIENT NOT REALLY EATING BUT DRINKING HIS GLUCERNA. REPOSITIONED.
[2021-06-25] MEDS: 0.45% NACL 1,000 ML IV SCH (16:15)
--- NOTE | 2021-06-25 18:08 | NUR ---
CLOSING NOTES Sleepy but arousable, o2 sat 99% in 4L. No distress noted. Turned and repositioned. IVF infusing well.
--- NOTE | 2021-06-25 22:54 | NUR ---
pt stable, awake, rest on bed and went back to sleep. meds given, pt tolerated well.
[2021-06-26 00:30] VITALS: BP_SYST 120
[2021-06-26] MEDS: METHYLPREDNISOLONE SOD SUCC 40 MG/ML VIAL IVP SCH ×5 (05:11→21:01)
[2021-06-26 05:13] VITALS: BP_SYST 125
--- NOTE | 2021-06-26 05:48 | NUR ---
Awake and sleeping in between the shifts, O2 sat at 96% in 5L, blood sugar is 210. Repositioned for comfort. changed linen and performed care.
--- NOTE | 2021-06-26 06:29 | NUR ---
Sleepy but arousable, o2 sat 99% in 4L. No distress noted. diaper changed. Turned and repositioned. IVF infusing well. pt in stable condition
--- NOTE | 2021-06-26 07:02 | NUR ---
endorsed care to Boaz with no further questions
[2021-06-26 07:15] LABS: ALANINE AMINOTRANSFERASE 49 U/L (12-78); ALBUMIN 2.3 g/dL (3.4-4.8); ANION GAP 11 (5-15); ASPARTATE AMINOTRANSFERASE 17 U/L (10-37); CALCIUM 7.4 mg/dL (8.4-11.0); CHLORIDE 103 mmol/L (98-107); CREATININE 0.42 mg/dL (0.55-1.30); GLUCOSE 209 mg/dL (70-99); POTASSIUM 3.5 mmol/L (3.5-5.1); SODIUM SERUM 138 mmol/L (136-145); TOTAL BILIRUBIN 0.8 mg/dL (0.0-1.0); UREA NITROGEN, BLOOD 20 mg/dL (8-21)
--- NOTE | 2021-06-26 08:00 | NUR ---
Initial notes Awake, alert talked to family via facetime. Denies any pain or shortness of breath. helped patient to use incentive spirometer. on O2 4L, 02 sat at 96%. IVF infusing well. afebrile. Bed alarm. maintain on contact isolation. Will monitor.
[2021-06-26 08:06] LABS: BASOPHILS # (AUTO) 0.1 K/uL (0.0-0.2); BASOPHILS % (AUTO) 0.4 % (0.0-2.0); HEMOGLOBIN 10.8 g/dL (14.0-18.0); LYMPHOCYTES # (AUTO) 1.2 K/uL (1.0-5.5); LYMPHOCYTES % (AUTO) 6.8 % (20.5-51.5); MEAN CORPUSCULAR HEMOGLOBIN 22 pg (27-31); MEAN CORPUSCULAR HGB CONC 30 % (32-36); MEAN CORPUSCULAR VOLUME 72 fL (79.0-98.0); MONOCYTES # (AUTO) 0.7 K/uL (0.0-1.0); MONOCYTES % (AUTO) 3.8 % (1.7-9.3); NEUTROPHILS # (AUTO) 15.3 K/uL (1.8-7.7); PLATELET COUNT (AUTO) 153 K/uL (130-430); RED BLOOD CELL COUNT(AUTO) 5.04 MIL/uL (4.2-6.2); RED CELL DISTRIBUTION WIDTH 24.6 % (9.0-15.0); WHITE BLOOD COUNT (AUTO) 17.2 K/uL (4.8-10.8)
[2021-06-26] MEDS: PANTOPRAZOLE SODIUM 40 MG/VIAL (PROTONIX) IVP SCH (08:35)
[2021-06-26] MEDS: ASCORBIC ACID 500 MG TABLET PO SCH (08:36)
[2021-06-26] MEDS: CHOLECALCIFEROL (VITAMIN D3) 2,000 UNIT TABLET PO SCH (08:36)
[2021-06-26] MEDS: SACUBITRIL/VALSARTAN 24 MG-26 MG 1 TABLET PO SCH ×2 (08:37→20:28)
[2021-06-26] MEDS: ENOXAPARIN SODIUM 40 MG/0.4 ML SYRINGE SUBCUT SCH (08:38)
[2021-06-26] MEDS: FUROSEMIDE 40 MG/4 ML VIAL IVP SCH (08:39)
[2021-06-26] MEDS: CARVEDILOL 6.25 MG TABLET (COREG) PO SCH ×2 (08:40→20:28)
[2021-06-26] MEDS: ALBUTEROL MDI INHALATION 8 GM INH INH SCH ×4 (09:37→19:20)
--- NOTE | 2021-06-26 10:30 | NUR ---
CM: DCP TO [facility] [place], SPOKE TO NEEL AT [facility] [place],AND REQUESTED OPEN BED, SHE STATED THAT OFFICE WOULDN'T BE OPEN FOR REVIEW UNTIL TOMORROW, PT INFO FAXED TO [phone].
[2021-06-26] MEDS: INSULIN GLARGINE 100 UNITS/ML 10 ML VIAL SUBCUT SCH (11:46)
[2021-06-26 12:54] VITALS: BP_SYST 120
[2021-06-26 16:55] VITALS: BP_SYST 118
--- NOTE | 2021-06-26 18:33 | NUR ---
closing notes Awake ad more alert and oriented, still need help on feeding. afebrile, Tolerating oxygen at 4L. bed bath done for today. will endorse.
[2021-06-26 19:00] VITALS: BP_SYST 122
--- NOTE | 2021-06-26 19:15 | NUR ---
change of shift.pt.presents isolation status;droplet;2/t covid19+status.pt.presents.o2 therapy via nasal cannulae.rate;4l/min humidified.02-sat%=94%.pt.presents rt.inj iv access intact iv fluids infusing.pt.presents spring cath intact;patent.pt.presents activity status bedrest.call light/telephone w/in access of the pt.
[2021-06-26 20:00] VITALS: BP_SYST 126
--- NOTE | 2021-06-26 20:00 | NUR ---
pt.assessed.v/s assessed values wnl.o2-sat%=94%.rt.inj iv access intact iv fluids infusing.spring cath intact urine content present.no c/o pain,nausea..i have apprised the pt.that snacks/beverages are available w/in the shfit.no requests posited. pt.assessed for cleanliness.pt.repositioned.call light/telephone placed w/in access of the pt.
--- NOTE | 2021-06-26 21:00 | NUR ---
2100p medications administered.pt.capable to ingest the po medication w/out difficulty.pudding facilitated ingesting of the po medications.no c/o pain,nausea.call light/telephone w/in access of the pt.
--- NOTE | 2021-06-26 22:00 | NUR ---
pt.assessed.02-sun%=94%.pt.presents quiescent affect;calm,resting.no c/o pain,nausea.rt.inj iv access intact iv fluids infusing. fusing.spring cath intact;patent urine content present.pt.assessed for cleanliness.pt.repositioned.call light/telephone placed w/in access of the pt.
--- NOTE | 2021-06-27 | NUR ---
pt.assessed.v/s assessed values wnl.no c/o pain,nausea.iv access intact iv fluids infusing.o2-sat%=94%.blood glucose assessed value:212mg/dl.note no md order;sliding scale to f/u in am if md to order sliding scale.pt.assessed for cleanliness pt.repositioned. call light/telephone placed w/in access of the pt. Addendum: 06/27/21 at 0132 by Jose Alberto Boles RN clementine sánchez intact;patent content present.
[2021-06-27 00:27] VITALS: BP_SYST 139
[2021-06-27] MEDS: ALBUTEROL MDI INHALATION 8 GM INH INH SCH ×4 (01:10→18:00)
--- NOTE | 2021-06-27 02:00 | NUR ---
pt.assessed.pt.presents quiescent affect;calm,somnolent.per flacc pain mgx pt.absent facial grimaces/body posturing.rt.inj iv access intact iv fluids infusing.02-sat%=94%.pt.assessed for cleanliness.pt.repositioned.call light/telephone placed w/in access of the pt.
--- NOTE | 2021-06-27 04:00 | NUR ---
pt.assessed.pt.assessed for cleanliness.pt.cleaned/repositioned.no c/o pain,nausea.no requests posited@this hour.rt.inj iv access intact iv fluids infusing.spring cath intact;patent urine content present.02-sat%=94%.call light/telephone placed w/in access of the pt.
--- NOTE | 2021-06-27 06:30 | NUR ---
pt.assessed.blood glucose assessed value;157mg/dl.iv access intact iv fluids infusing.spring cath intact urine content present. no c/o pain,nausea.02-sat5=94%.i have weighed the pt.2/t chf/lasix administration.pt.repositioned.call light/telephone placed w/in access of the pt.
--- NOTE | 2021-06-27 09:33 | NUR ---
DISCHARGE PLANNING Order for dc planning for SNF. Called & spoke with Dameon Durbin, ph [phone], & she also put in pt's dtr Arsenio on ph. Explained SNF to & dtr and agreeable with short term SNF. Will look into [facility] but also looking into other SNF's. Informed them of choices & dtr going to look SNF's up at Medicare.gov. Pt Covid + 17days ago, order for rapid Covid to open options to SNF's if Covid neg. Per dtr pt is fully vaccinated including Booster, all with Pfizer: #30 Apr 2020, #01 Jun 2020, Booster Dec or Jan 2021. Per dtr pt also has his flu vaccine. Family will look up SNF's then let us know preference. Addendum: 06/27/21 at 1614 by Nat Pineda RN Called & spoke with regarding SNF preference. States will call back with preference when gets home. Explained Medicare IMM & gave her ph #, verbalized understanding. Received call from Arsenio & with preference. Preference is [facility]. States in case do not accept to send also to: [facility], [facility], [facility], [facility], & [facility]. States will determine preference depending on who accepts pt. Faxed referral to all the listed facilities. Left msg with Cecilia at [facility], ph [phone] fax [phone].
[2021-06-27] MEDS: INSULIN GLARGINE 100 UNITS/ML 10 ML VIAL SUBCUT SCH (09:48)
[2021-06-27] MEDS: ENOXAPARIN SODIUM 40 MG/0.4 ML SYRINGE SUBCUT SCH (09:51)
[2021-06-27] MEDS: PANTOPRAZOLE SODIUM 40 MG/VIAL (PROTONIX) IVP SCH (09:51)
[2021-06-27] MEDS: METHYLPREDNISOLONE SOD SUCC 40 MG/ML VIAL IVP SCH ×2 (09:52→21:00)
[2021-06-27] MEDS: ASCORBIC ACID 500 MG TABLET PO SCH (09:54)
[2021-06-27] MEDS: FUROSEMIDE 40 MG TABLET PO SCH (09:54)
[2021-06-27] MEDS: CHOLECALCIFEROL (VITAMIN D3) 2,000 UNIT TABLET PO SCH (09:54)
[2021-06-27] MEDS: CARVEDILOL 6.25 MG TABLET (COREG) PO SCH ×2 (09:59→21:21)
[2021-06-27] MEDS: SACUBITRIL/VALSARTAN 24 MG-26 MG 1 TABLET PO SCH ×2 (10:00→21:21)
[2021-06-27 11:29] VITALS: BP_SYST 110
--- NOTE | 2021-06-27 15:28 | NUR ---
Nutrition F/U RD reviewed pt's current EMR record including diet Hx, physician notes, nursing notes, pertinent labs/meds/procedures, care trends, and care activity. Admitting Diagnosis CHF, influenza, COVID Medical History Comment: DM, PE in R arm, RA, and gout per physician notes Pt also found w/ septic shock per physician notes SARS-CoV-2 Ag (Rapid) Positive 06/10, 06/27 & Influenza B Positive 06/10 Subjective Information: 06/22 S/P Extubation 06/22 ST Swallow evaluation rec for puree/NTL diet w/ 1:1 feeder and full aspiration precautions RD bedside visit deferred. Per EMR review, pt is on 4 L O2 via NC; Brayan scale: 19, erythema at sacrum ; PO intake 42% x3 meal records; last BM 06/26 x1 Current Diet Order/Nutrition Support: Pureed, CCHO low carb-45, cardiac, NTL diet x3 days Patient/Significant Other Unable To Verbalize Education Provided Not Indicated Pertinent Medications lantus, zinc, VIT C, protonix IV, lasix, lovenox, solu-medrol, Vit D3 Pertinent Labs (06/26) WBC 17.2 H, BG 209 H, POC BG 312 H Height (Feet) 5 feet Height (Inches) 5.00 inches Weight (Pounds) 141 pounds Weight (Calculated Kilograms) 63.630117 kilograms Patient Weight 63.957 kg -- stable since 06/12 Body Mass Index 23.46 kg/m2 %IBW 104 [place]/Adjusted Body Weight 136#/62 kg Recent Weight Change Unable to verify Weight Status Appropriate Food Allergies Unable to verify NEW Estimated Energy Expenditure (kcals/day) 9730-2401 (30-35 kcal/kg CBW d/t sepsis) Estimated Protein Required (g/day) 96-128 (1.5-2 gm/kg CBW d/t sepsis) Estimated Fluid Required (l/day) Per physician d/t CHF Problem/Etiology/Signs/Symptoms Increased nutritional needs R/T metabolic demands AEB estimated nutritional requirements for sepsis. *Ongoing Altered nutrition-related labs R/T endocrine dysfunction AEB elevated BG lab values. *Ongoing Expected Outcomes/Goals - Monitor provision of EN support w/ goal of pt meeting at least 75% of estimated nutritional needs, labs trending WNL, normal GI function, and skin integrity/wt maintenance, weaning status Dietitian Recommendations * Continue pureed, CCHO low carb-45 gm, cardiac, NTL diet (ONS Glucerna TID comes standard w/ this diabetic pureed diet; ONS yields 660 kcal/day, 30 gm protein/day) * Consider advance diet texture per physician Follow Up High Risk: F/U in 2-3 days
[2021-06-27 16:53] VITALS: BP_SYST 114
--- NOTE | 2021-06-27 17:30 | NUR ---
Patient VSS, episodic bradycardia noted. Covid re-test rapid preformed, patient still remains covid positive, discussed with case management regarding facility placement. Able to preform care X 1 asssist, able to feed self, tolerating puree diet. R triple IJ remains intact. [place] care preformed and secured. Safety maintained, will continue to monitor.
--- NOTE | 2021-06-27 17:46 | NUR ---
SECOND REQUEST FOR FOOD MIXER REPAIRER SHAWNA TO PUT BATTERY IN TELE MONITOR UNABLE TO MONITOR THE PATIENT SINCE 1699
[2021-06-27 20:00] VITALS: BP_SYST 112
[2021-06-28] VITALS: BP_SYST 112
[2021-06-28] MEDS: ALBUTEROL MDI INHALATION 8 GM INH INH SCH ×4 (00:10→20:03)
--- NOTE | 2021-06-28 07:35 | NUR ---
Received report from assistant casino shift manager RN, and assumed patient care.
[2021-06-28 08:00] VITALS: BP_SYST 139
[2021-06-28 08:02] LABS: ANION GAP 10 (5-15); CALCIUM 7.4 mg/dL (8.4-11.0); CHLORIDE 100 mmol/L (98-107); CREATININE 0.28 mg/dL (0.55-1.30); GLUCOSE 139 mg/dL (70-99); SODIUM SERUM 136 mmol/L (136-145); UREA NITROGEN, BLOOD 18 mg/dL (8-21)
[2021-06-28 08:03] LABS: BASOPHILS % (AUTO) 0.3 % (0.0-2.0); EOSINOPHILS % (AUTO) 0.1 % (0.0-4.0); HEMATOCRIT 39.1 % (36-54); HEMOGLOBIN 11.8 g/dL (14.0-18.0); LYMPHOCYTES % (AUTO) 11.1 % (20.5-51.5); MEAN CORPUSCULAR HEMOGLOBIN 22 pg (27-31); MEAN CORPUSCULAR HGB CONC 30 % (32-36); MEAN CORPUSCULAR VOLUME 72 fL (79.0-98.0); MONOCYTES # (AUTO) 0.5 K/uL (0.0-1.0); MONOCYTES % (AUTO) 5.3 % (1.7-9.3); NEUTROPHILS # (AUTO) 7.8 K/uL (1.8-7.7); NEUTROPHILS % (AUTO) 83.2 % (40.0-70.0); PLATELET COUNT (AUTO) 131 K/uL (130-430); RED BLOOD CELL COUNT(AUTO) 5.47 MIL/uL (4.2-6.2); RED CELL DISTRIBUTION WIDTH 24.4 % (9.0-15.0); WHITE BLOOD COUNT (AUTO) 9.4 K/uL (4.8-10.8)
[2021-06-28 08:13] LABS: POTASSIUM 2.9 mmol/L (3.5-5.1)
--- NOTE | 2021-06-28 08:15 | NUR ---
CRITICAL RECEIVED CRITICAL POTASSIUM 2.9
--- NOTE | 2021-06-28 08:18 | NUR ---
INFORMED INFORMED DR ALONSO OF POTASSIUM 2.9 NEW ORDERS RECEIVED
--- NOTE | 2021-06-28 08:20 | NUR ---
Received critical lab report of potassium of 2.9 from BABITA Kenyon per MD's order will administer medication, will wait for [facility] to verify medication. Will reinforce if needed throughout the shift.
--- NOTE | 2021-06-28 08:20 | NUR ---
PHYSICAL THERAPY CO-SIGN The Physical Therapy Progress Notes documented by Regulator Inspector have been reviewed. Reviewed/Co-Signed by: Adi Campos Documentation Done by: FRANKLIN LOONEY PTA Addendum: 06/28/21 at 0821 by Adi Campos PT Amended: Links added.
--- NOTE | 2021-06-28 08:23 | NUR ---
HIGH ALERT NOTE: Called Dr. ALONSO back at [phone] identified within the medical roster to verify physician authenticity POTASSIUM 60 MG .
[2021-06-28] MEDS ORDERED: POTASSIUM CHLORIDE 20 MEQ TAB.PRT.SR PO SCH (09:00)
[2021-06-28] MEDS ORDERED: POTASSIUM CHLORIDE 20 MEQ TAB.PRT.SR PO ONE (09:00)
[2021-06-28] MEDS: FUROSEMIDE 40 MG TABLET PO SCH (09:11)
[2021-06-28] MEDS: CHOLECALCIFEROL (VITAMIN D3) 2,000 UNIT TABLET PO SCH (09:11)
[2021-06-28] MEDS: METHYLPREDNISOLONE SOD SUCC 40 MG/ML VIAL IVP SCH ×2 (09:11→22:12)
[2021-06-28] MEDS: PANTOPRAZOLE SODIUM 40 MG/VIAL (PROTONIX) IVP SCH (09:11)
[2021-06-28] MEDS: ASCORBIC ACID 500 MG TABLET PO SCH (09:13)
[2021-06-28] MEDS: ENOXAPARIN SODIUM 40 MG/0.4 ML SYRINGE SUBCUT SCH (09:13)
[2021-06-28] MEDS: CARVEDILOL 6.25 MG TABLET (COREG) PO SCH ×2 (09:15→21:00)
[2021-06-28] MEDS: INSULIN GLARGINE 100 UNITS/ML 10 ML VIAL SUBCUT SCH (10:04)
[2021-06-28] MEDS: SACUBITRIL/VALSARTAN 24 MG-26 MG 1 TABLET PO SCH ×2 (11:27→22:13)
[2021-06-28 12:35] VITALS: BP_SYST 116
--- NOTE | 2021-06-28 14:41 | NUR ---
CM: PT ACCEPTED AT [facility], WILL BE GOING TO [id number], CALL REPORT TO [phone], TRANSPORT ARRANGED FOR 1900P WITH [facility], NURSE CORINNE JC AWARE, PACKET TAKEN TO FLOOR.
[2021-06-28 16:29] VITALS: BP_SYST 122
--- NOTE | 2021-06-28 18:49 | NUR ---
CALLED [facility] WITH CHARGE NURSE AND SHE SAID THAT THERE PT IS NOT GETTING DC TILL 1900 ADN THEY NEED OUR BOILER FIREMAN TO BE 2100 I [facility] UP BOILER FIREMAN FOR 2100 SPOKE WITH MILI
[2021-06-28 20:00] VITALS: BP_SYST 131
--- NOTE | 2021-06-28 22:07 | NUR ---
Follow up call made to [facility], s/w Nery, she said the crew will be here in 10 minutes.
--- NOTE | 2021-06-28 23:03 | NUR ---
GAVE REPORT TO CHARGE NURSE ELEONORA BECAUSE THE NURSE FOR THE PT WAS BUSY. REPORT WAS ALSO GIVEN TO TRANSPORT. PT STABLE AND ALERT. PT HASN'T TAKEN ANYTHING BY MOUTH AND HE IS LEAVING WITH HIS TRIPLE LUMEN CENTRAL LINE AND RAI CATHETER INTACT
--- NOTE | 2021-06-29 07:22 | NUR ---
PHYSICAL THERAPY CO-SIGN The Physical Therapy Progress Notes documented by Insurance Billing Clerk have been reviewed. Reviewed/Co-Signed by: Adi Campos Documentation Done by: FRANKLIN LOONEY PTA Addendum: 06/29/21 at 0723 by Adi Campos PT Amended: Links added.
== END 2021-06-28 23:27 | DRG 870 ==
LOC: SED 09:44 → SIC 13:58 → STU 06-23 18:00
PROVIDERS: ADMIT Internal Medicine; ATTEND Internal Medicine
PROC: 5A09357 Assistance with Respiratory Ventilation, Less than 24 Consecutive Hours, Continuous Positive Airway Pressure (ICD-10-PCS; 2021-06-08)
PROC: 5A1955Z Respiratory Ventilation, Greater than 96 Consecutive Hours (ICD-10-PCS; principal; 2021-06-10)
PROC: 0BH17EZ Insertion of Endotracheal Airway into Trachea, Via Natural or Artificial Opening (ICD-10-PCS; 2021-06-10)
PROC: XW043H5 Introduction of Tocilizumab into Central Vein, Percutaneous Approach, New Technology Group 5 (ICD-10-PCS; 2021-06-10)
PROC: 0D9670Z Drainage of Stomach with Drainage Device, Via Natural or Artificial Opening (ICD-10-PCS; 2021-06-10)
PROC: 0W9B30Z Drainage of Left Pleural Cavity with Drainage Device, Percutaneous Approach (ICD-10-PCS; 2021-06-10)
PROC: 05HM33Z Insertion of Infusion Device into Right Internal Jugular Vein, Percutaneous Approach (ICD-10-PCS; 2021-06-10)
PROC: B543ZZA Ultrasonography of Right Jugular Veins, Guidance (ICD-10-PCS; 2021-06-10)
PROC: XW033H5 Introduction of Tocilizumab into Peripheral Vein, Percutaneous Approach, New Technology Group 5 (ICD-10-PCS; 2021-06-12)
DX: A41.9 Sepsis, unspecified organism (principal); U07.1 COVID-19; J12.82 Pneumonia due to coronavirus disease 2019; J96.01 Acute respiratory failure with hypoxia; R65.21 Severe sepsis with septic shock; J10.08 Influenza due to other identified influenza virus with other specified pneumonia; I42.0 Dilated cardiomyopathy; H40.9 Unspecified glaucoma; I11.0 Hypertensive heart disease with heart failure; M10.9 Gout, unspecified; M06.9 Rheumatoid arthritis, unspecified; I50.9 Heart failure, unspecified; E11.42 Type 2 diabetes mellitus with diabetic polyneuropathy; Z95.810 Presence of automatic (implantable) cardiac defibrillator; Z93.1 Gastrostomy status; Z86.718 Personal history of other venous thrombosis and embolism; Z79.899 Other long term (current) drug therapy; Z79.82 Long term (current) use of aspirin
CPT/HCPCS: 36415; 36600; 71045; 80048; 80053; 80061; 82550; 82803-TC; 82962; 83036; 83605; 83735; 83880; 84100; 84443; 84484; 85007; 85025; 85027; 85379; 85610-TC; 85730-TC; 86140; 87040; 87070-TC; 87205-TC; 92610-GN; 93005; 93306; 94002; 94003; 94640; 94760; 96374; 97110-GP; 97112-GP; 97163-GP; 97530-GP; 99291; C9113; G9035; J0360; J1030; J1650; J1815; J1940; J2060; J2543; J2704; J3262; J3480; J3490; J7050; J7060; P9046